=== PATIENT | male | born 1980 | race African-American/Black ===

== ENCOUNTER 2018-10-12 11:52 | Inpatient (IN) ==
[2018-10-12] MEDS ORDERED: SODIUM CHLORIDE 0.9% 1,000 ML IV STA (15:57)
[2018-10-12] MEDS ORDERED: INSULIN REGULAR 100 UNIT/ML IV STA (16:01)
[2018-10-12 17:11] LABS: Alanine Aminotransferase 17 U/L (16-61); Albumin 3.1 G/DL (3.4-5.0); Alkaline Phosphatase 153 U/L (45-117); Aspartate Amino Transferase 12 U/L (0-37); Blood Urea Nitrogen 21 MG/DL (7-18); Calcium 9.6 MG/DL (8.5-10.1); Glucose 479 MG/DL (74-106); Osmolality,Calculated 283.8 MOS/KG (273-304); Total Protein 9.4 G/DL (6.4-8.3)
[2018-10-12 17:18] LABS: Apearance,Urine CLEAR (Clear); Bilirubin,Urine Negative (Negative); Blood, Urine Negative (Negative); Glucose,Urine (UA) >=500 mg/dL (Negative); Ketones,Urine Negative (Negative); Mucus,Urine Occasional /LPF (Occasional); Nitrite,Urine Negative (Negative); Protein,Urine Negative; RBC,Urine <1 /HPF (0-4); Urine Color Straw (Yellow); Urine Specific Gravity 1.023 (1.001-1.035); Urine Urobilinogen < 2.0 EU/DL (0.2-1.0); WBC,Urine <1 /HPF (0-6)
[2018-10-12 18:16] LABS: Basophils % 0.3 % (0.0-0.8); Eosinophils # 0.1 10*3/uL (0.0-0.87); Eosinophils % 0.9 % (0.00-10.9); Hematocrit 38.2 VOL% (42.0-52.0); Hemoglobin 11.4 GM/DL (14.0-18.0); Immature Granulocytes % 0.5 %; Immature Granulocytes Absolute 0.06 #; Lymphocytes # 2.5 10*3/uL (1.4-4.0); Lymphocytes % 21.6 % (21.2-54.2); Mean Corpuscular HGB Conc 29.8 GM/DL (32-36); Mean Corpuscular Volume 81.1 FL (87-102); Monocytes % 2.3 % (1.7-12.7); Neutrophils % 74.4 % (38.7-73.9); Platelet Count 304 T/CUMM (130-400); Red Blood Count 4.71 MC/CUMM (3.8-5.5); Red Cell Distribution Width 14.8 % (9.3-17.3); White Blood Count 11.5 T/CUMM (4-12)
[2018-10-12 18:29] LABS: VBG Base Excess 0.8 MEQ/L (0-4); VBG HCO3 25.2 MEQ/L (24-28); VBG Oxygen Saturation 99.7 %; VBG PCO2 36.7 MMHG (41-51); VBG PH 7.437
[2018-10-12] MEDS ORDERED: diphenhydrAMINE CAP 25 MG CAPSULE PO PRN (19:35)
[2018-10-12] MEDS ORDERED: ACETAMINOPHEN 325 MG TABLET PO PRN (19:35)
[2018-10-12] MEDS ORDERED: DEXTROSE 50% 25 GM/50 ML VIAL IV PRN (19:35)
[2018-10-12] MEDS ORDERED: traZODone 50 MG TABLET PO PRN (19:35)
[2018-10-12] MEDS ORDERED: ONDANSETRON 4 MG/2 ML VIAL IV PRN (19:35)
[2018-10-12] MEDS ORDERED: DOCUSATE SODIUM 100 MG CAPSULE PO PRN (19:35)
[2018-10-12] MEDS ORDERED: GLUCAGON 1 MG VIAL IM PRN (19:35)
[2018-10-12] MEDS ORDERED: ALBUTEROL 2.5 MG/3 ML NEB RESP TX PRN (19:39)
[2018-10-12] MEDS ORDERED: ENOXAPARIN 40 MG/0.4 ML SYRINGE SUBCUT SCH (21:00)
[2018-10-12] MEDS ORDERED: INSULIN LISPRO 100 UNIT/ML SUBCUT SCH (21:00)
[2018-10-12] MEDS: INSULIN LISPRO 100 UNIT/ML SUBCUT SCH ×2 (21:03→23:57)
[2018-10-12] MEDS: SODIUM CHLORIDE 0.9% 1,000 ML IV SCH (21:41)
[2018-10-12] MEDS: glyBURIDE/METFORMIN 5-500 MG TABLET PO SCH (23:09)
[2018-10-13] MEDS: INSULIN LISPRO 100 UNIT/ML SUBCUT SCH ×2 (05:08→09:49)
[2018-10-13] MEDS: SODIUM CHLORIDE 0.9% 1,000 ML IV SCH (05:12)
[2018-10-13 06:41] LABS: Basophils % 0.3 % (0.0-0.8); Eosinophils # 0.1 10*3/uL (0.0-0.87); Eosinophils % 1.2 % (0.00-10.9); Hematocrit 36.5 VOL% (42.0-52.0); Hemoglobin 11.1 GM/DL (14.0-18.0); Immature Granulocytes % 0.4 %; Immature Granulocytes Absolute 0.04 #; Lymphocytes # 2.2 10*3/uL (1.4-4.0); Lymphocytes % 21.3 % (21.2-54.2); Mean Corpuscular HGB Conc 30.4 GM/DL (32-36); Mean Corpuscular Volume 81.1 FL (87-102); Mean Platelet Volume 10.9 FL (9.6-12.0); Monocytes % 7.5 % (1.7-12.7); Neutrophils % 69.3 % (38.7-73.9); Platelet Count 259 T/CUMM (130-400); Red Cell Distribution Width 15.1 % (9.3-17.3); White Blood Count 10.1 T/CUMM (4-12)
[2018-10-13 07:13] LABS: Albumin 2.7 G/DL (3.4-5.0); Bilirubin,Total 0.4 MG/DL (0.2-1.0); Calcium 8.5 MG/DL (8.5-10.1); Osmolality,Calculated 277.5 MOS/KG (273-304); Total Protein 8.4 G/DL (6.4-8.3)
[2018-10-13] MEDS ORDERED: LISINOPRIL/HCTZ 20-12.5 MG TABLET PO SCH (09:00)
[2018-10-13] MEDS ORDERED: amLODIPine 5 MG TABLET PO SCH (09:00)
[2018-10-13] MEDS ORDERED: ASPIRIN CHEW 81 MG TABLET PO SCH (09:00)
[2018-10-13] MEDS ORDERED: PANTOPRAZOLE 40 MG TABLET PO SCH (09:00)
[2018-10-13] MEDS: glyBURIDE/METFORMIN 5-500 MG TABLET PO SCH (09:50)
[2018-10-13 14:33] VITALS: BP 119/72
== END 2018-10-13 14:40 | disposition home or self-care (01) | DRG 420 ==
LOC: N.ED 11:52 → N.EDINP 19:35 → N.4E 21:41
PROVIDERS: ADMIT Family Medicine; ATTEND Family Medicine

== ENCOUNTER 2020-07-24 15:27 | Inpatient (IN) ==
[2020-07-24] MEDS ORDERED: MEROPENEM 500 MG in SODIUM CHLORIDE 0.9% 100 ML IV ONE (18:29)
[2020-07-24 19:59] LABS: Basophils % 0.2 % (0.0-0.8); Eosinophils # 0.1 10*3/uL (0.0-0.87); Eosinophils % 0.7 % (0.00-10.9); Hematocrit 37.1 VOL% (42.0-52.0); Hemoglobin 10.5 GM/DL (14.0-18.0); Immature Granulocytes % 0.4 %; Immature Granulocytes Absolute 0.07 #; Lymphocytes # 2.4 10*3/uL (1.4-4.0); Mean Corpuscular HGB Conc 28.3 GM/DL (32-36); Mean Platelet Volume 10.1 FL (9.6-12.0); Monocytes % 5.5 % (1.7-12.7); Neutrophils % 78.2 % (38.7-73.9); Platelet Count 373 T/CUMM (130-400); Red Blood Count 4.47 MC/CUMM (3.8-5.5); Red Cell Distribution Width 17.8 % (9.3-17.3)
[2020-07-24 20:05] LABS: Alanine Aminotransferase 10 U/L (16-61); Albumin 3.1 G/DL (3.4-5.0); Alkaline Phosphatase 93 U/L (45-117); Aspartate Amino Transferase 11 U/L (0-37); Bilirubin,Total < 0.39 MG/DL (0.2-1.0); Blood Urea Nitrogen 22 MG/DL (7-18); Carbon Dioxide 27 MMOL/L (21-32); Estimated Glom Filtration Rate 180 ML/MIN; Glucose 142 MG/DL (74-106); Potassium 4.5 MMOL/L (3.5-5.1); Sodium 136 MMOL/L (136-145); Total Protein 9.1 G/DL (6.4-8.2)
[2020-07-24] MEDS ORDERED: hydrALAZINE 20 MG/1 ML VIAL IV PRN (22:35)
[2020-07-24] MEDS ORDERED: ONDANSETRON 4 MG/2 ML VIAL IV PRN (22:35)
[2020-07-24] MEDS ORDERED: DEXTROSE 50% 25 GM/50 ML VIAL IV PRN (22:35)
[2020-07-24] MEDS ORDERED: GLUCAGON 1 MG VIAL IM PRN (22:35)
[2020-07-24] MEDS ORDERED: ENOXAPARIN 40 MG/0.4 ML SYRINGE SUBCUT SCH (23:00)
[2020-07-24] MEDS ORDERED: ALBUTEROL 2.5 MG/3 ML NEB RESP TX PRN (23:19)
[2020-07-24] MEDS: ACETAMINOPHEN 325 MG TABLET PO PRN (23:52)
[2020-07-25] MEDS: FERROUS SULFATE 325 MG TABLET PO SCH ×3 (02:07→20:39)
[2020-07-25] MEDS: ATORVASTATIN 10 MG TABLET PO SCH ×2 (02:07→20:39)
[2020-07-25] MEDS: APIXABAN 5 MG TABLET PO SCH ×4 (02:07→12:16)
[2020-07-25] MEDS: MEROPENEM 500 MG in SODIUM CHLORIDE 0.9% 100 ML IV SCH ×2 (02:48→09:11)
[2020-07-25 06:01] LABS: Calcium 9.2 MG/DL (8.5-10.1); Osmolality,Calculated 275.1 MOS/KG (273-304); Potassium 4.5 MMOL/L (3.5-5.1)
[2020-07-25] MEDS: INSULIN LISPRO 100 UNIT/ML SUBCUT SCH ×4 (07:53→20:39)
[2020-07-25] MEDS ORDERED: ASPIRIN CHEW 81 MG TABLET PO SCH (09:00)
[2020-07-25] MEDS ORDERED: IBUPROFEN 600 MG TABLET PO SCH (09:00)
[2020-07-25] MEDS ORDERED: NON-FORMULARY MEDICATION (Liraglutide [Victoza 3-Pak] 0.6 mg/0.1 mL (18 mg/3 mL) Pen Injec SUBCUT SCH (09:00)
[2020-07-25] MEDS: CEFEPIME 1,000 MG in SODIUM CHLORIDE 0.9% 100 ML IV SCH ×3 (09:14→20:39)
[2020-07-25] MEDS: LISINOPRIL/HCTZ 20-12.5 MG TABLET PO SCH (09:14)
[2020-07-25] MEDS: TOPIRAMATE 25 MG TABLET PO SCH (09:14)
[2020-07-25] MEDS: PANTOPRAZOLE 40 MG TABLET PO SCH (09:14)
[2020-07-25] MEDS: carvediloL 6.25 MG TABLET PO SCH ×2 (09:14→20:39)
[2020-07-25] MEDS: FUROSEMIDE 40 MG TABLET PO SCH (10:24)
[2020-07-25 11:29] LABS: Basophils # 0.1 10*3/uL (0.0-0.2); Basophils % 0.3 % (0.0-0.8); Eosinophils # 0.1 10*3/uL (0.0-0.87); Eosinophils % 0.6 % (0.00-10.9); Hematocrit 36.1 VOL% (42.0-52.0); Immature Granulocytes % 0.3 %; Immature Granulocytes Absolute 0.05 #; Lymphocytes # 2.1 10*3/uL (1.4-4.0); Lymphocytes % 14.3 % (21.2-54.2); Mean Corpuscular HGB Conc 29.9 GM/DL (32-36); Mean Corpuscular Volume 81.7 FL (87-102); Mean Platelet Volume 10.5 FL (9.6-12.0); Neutrophils % 76.5 % (38.7-73.9); Platelet Count 366 T/CUMM (130-400); Red Blood Count 4.42 MC/CUMM (3.8-5.5); Red Cell Distribution Width 18.2 % (9.3-17.3); White Blood Count 14.8 T/CUMM (4-12)
[2020-07-25 11:31] LABS: Hemoglobin 10.8 GM/DL (14.0-18.0)
[2020-07-25] MEDS ORDERED: INSULIN GLARGINE 100 UNIT/ML SUBCUT SCH (21:00)
[2020-07-26] MEDS: CEFEPIME 1,000 MG in SODIUM CHLORIDE 0.9% 100 ML IV SCH ×4 (03:16→21:05)
[2020-07-26 04:30] LABS: Calcium 8.8 MG/DL (8.5-10.1); Osmolality,Calculated 278.1 MOS/KG (273-304); Potassium 4.5 MMOL/L (3.5-5.1)
[2020-07-26] MEDS: ACETAMINOPHEN 325 MG TABLET PO PRN ×2 (05:52→21:34)
[2020-07-26 06:26] LABS: Basophils % 0.3 % (0.0-0.8); Eosinophils # 0.1 10*3/uL (0.0-0.87); Eosinophils % 1.2 % (0.00-10.9); Hematocrit 33.5 VOL% (42.0-52.0); Hemoglobin 10.1 GM/DL (14.0-18.0); Immature Granulocytes % 0.4 %; Immature Granulocytes Absolute 0.05 #; Lymphocytes # 1.9 10*3/uL (1.4-4.0); Lymphocytes % 15.7 % (21.2-54.2); Mean Corpuscular HGB Conc 30.1 GM/DL (32-36); Mean Corpuscular Volume 81.1 FL (87-102); Mean Platelet Volume 10.5 FL (9.6-12.0); Monocytes % 8.5 % (1.7-12.7); Neutrophils % 73.9 % (38.7-73.9); Platelet Count 336 T/CUMM (130-400); Red Blood Count 4.13 MC/CUMM (3.8-5.5); Red Cell Distribution Width 17.8 % (9.3-17.3); White Blood Count 11.9 T/CUMM (4-12)
[2020-07-26] MEDS: INSULIN LISPRO 100 UNIT/ML SUBCUT SCH ×4 (10:06→21:06)
[2020-07-26] MEDS: carvediloL 6.25 MG TABLET PO SCH ×2 (14:14→21:05)
[2020-07-26] MEDS: LISINOPRIL/HCTZ 20-12.5 MG TABLET PO SCH (14:14)
[2020-07-26] MEDS: PANTOPRAZOLE 40 MG TABLET PO SCH (14:14)
[2020-07-26] MEDS: TOPIRAMATE 25 MG TABLET PO SCH (14:14)
[2020-07-26] MEDS: FUROSEMIDE 40 MG TABLET PO SCH (14:14)
[2020-07-26] MEDS: FERROUS SULFATE 325 MG TABLET PO SCH ×2 (14:14→21:05)
[2020-07-26] MEDS: ATORVASTATIN 10 MG TABLET PO SCH (21:05)
[2020-07-26] MEDS: INSULIN GLARGINE 100 UNIT/ML SUBCUT SCH (21:06)
[2020-07-27] MEDS: INSULIN GLARGINE 100 UNIT/ML SUBCUT SCH ×2 (00:54→21:09)
[2020-07-27] MEDS: CEFEPIME 1,000 MG in SODIUM CHLORIDE 0.9% 100 ML IV SCH ×5 (03:18→21:11)
[2020-07-27] MEDS: ACETAMINOPHEN 325 MG TABLET PO PRN ×2 (04:05→16:12)
[2020-07-27 05:58] LABS: Basophils % 0.3 % (0.0-0.8); Eosinophils # 0.2 10*3/uL (0.0-0.87); Eosinophils % 1.7 % (0.00-10.9); Hematocrit 31.9 VOL% (42.0-52.0); Hemoglobin 9.3 GM/DL (14.0-18.0); Immature Granulocytes % 0.5 %; Immature Granulocytes Absolute 0.05 #; Lymphocytes # 1.9 10*3/uL (1.4-4.0); Lymphocytes % 17.7 % (21.2-54.2); Mean Corpuscular HGB Conc 29.2 GM/DL (32-36); Mean Corpuscular Volume 83.3 FL (87-102); Mean Platelet Volume 10.6 FL (9.6-12.0); Monocytes % 8.6 % (1.7-12.7); Neutrophils % 71.2 % (38.7-73.9); Platelet Count 298 T/CUMM (130-400); Red Blood Count 3.83 MC/CUMM (3.8-5.5); Red Cell Distribution Width 17.7 % (9.3-17.3); White Blood Count 10.7 T/CUMM (4-12)
[2020-07-27 06:02] LABS: Calcium 8.7 MG/DL (8.5-10.1); Osmolality,Calculated 283.7 MOS/KG (273-304); Potassium 4.5 MMOL/L (3.5-5.1)
[2020-07-27 06:09] LABS: Hypochromasia 1+; Microcytosis 1+
[2020-07-27 06:10] LABS: Platelet Estimate Normal
[2020-07-27] MEDS: INSULIN LISPRO 100 UNIT/ML SUBCUT SCH ×4 (07:33→20:38)
[2020-07-27] MEDS: LISINOPRIL/HCTZ 20-12.5 MG TABLET PO SCH (09:40)
[2020-07-27] MEDS: PANTOPRAZOLE 40 MG TABLET PO SCH (09:40)
[2020-07-27] MEDS: FERROUS SULFATE 325 MG TABLET PO SCH ×2 (09:40→21:08)
[2020-07-27] MEDS: TOPIRAMATE 25 MG TABLET PO SCH (09:40)
[2020-07-27] MEDS: FUROSEMIDE 40 MG TABLET PO SCH (09:41)
[2020-07-27] MEDS: carvediloL 6.25 MG TABLET PO SCH ×2 (09:41→21:08)
[2020-07-27] MEDS: ATORVASTATIN 10 MG TABLET PO SCH (21:08)
[2020-07-27] MEDS: APIXABAN 5 MG TABLET PO SCH (21:08)
[2020-07-28] MEDS: ACETAMINOPHEN 325 MG TABLET PO PRN (01:33)
[2020-07-28] MEDS: CEFEPIME 1,000 MG in SODIUM CHLORIDE 0.9% 100 ML IV SCH ×4 (03:22→21:12)
[2020-07-28 06:51] LABS: Basophils % 0.4 % (0.0-0.8); Eosinophils # 0.2 10*3/uL (0.0-0.87); Eosinophils % 2.3 % (0.00-10.9); Hematocrit 34.3 VOL% (42.0-52.0); Hemoglobin 10.1 GM/DL (14.0-18.0); Immature Granulocytes % 0.3 %; Immature Granulocytes Absolute 0.03 #; Lymphocytes # 2.1 10*3/uL (1.4-4.0); Lymphocytes % 19.6 % (21.2-54.2); Mean Corpuscular HGB Conc 29.4 GM/DL (32-36); Mean Corpuscular Volume 82.7 FL (87-102); Mean Platelet Volume 10.3 FL (9.6-12.0); Monocytes % 7.4 % (1.7-12.7); Platelet Count 331 T/CUMM (130-400); Red Blood Count 4.15 MC/CUMM (3.8-5.5); Red Cell Distribution Width 17.7 % (9.3-17.3); White Blood Count 10.5 T/CUMM (4-12)
[2020-07-28 07:04] LABS: Calcium 8.9 MG/DL (8.5-10.1); Potassium 4.7 MMOL/L (3.5-5.1)
[2020-07-28] MEDS: INSULIN LISPRO 100 UNIT/ML SUBCUT SCH ×4 (08:36→20:16)
[2020-07-28] MEDS: FERROUS SULFATE 325 MG TABLET PO SCH ×2 (09:07→21:10)
[2020-07-28] MEDS: carvediloL 6.25 MG TABLET PO SCH ×2 (09:07→21:09)
[2020-07-28] MEDS: FUROSEMIDE 40 MG TABLET PO SCH (09:07)
[2020-07-28] MEDS: PANTOPRAZOLE 40 MG TABLET PO SCH (09:07)
[2020-07-28] MEDS: LISINOPRIL/HCTZ 20-12.5 MG TABLET PO SCH (09:07)
[2020-07-28] MEDS: DOCUSATE SODIUM 100 MG CAPSULE PO PRN (09:08)
[2020-07-28] MEDS: APIXABAN 5 MG TABLET PO SCH ×2 (09:08→21:10)
[2020-07-28] MEDS: TOPIRAMATE 25 MG TABLET PO SCH (09:13)
[2020-07-28] MEDS: ATORVASTATIN 10 MG TABLET PO SCH (21:10)
[2020-07-28] MEDS: INSULIN GLARGINE 100 UNIT/ML SUBCUT SCH (21:10)
[2020-07-29] MEDS: ACETAMINOPHEN 325 MG TABLET PO PRN ×2 (01:23→23:09)
[2020-07-29] MEDS: CEFEPIME 1,000 MG in SODIUM CHLORIDE 0.9% 100 ML IV SCH ×4 (03:33→21:12)
[2020-07-29 07:01] LABS: Basophils # 0.1 10*3/uL (0.0-0.2); Basophils % 0.4 % (0.0-0.8); Eosinophils # 0.2 10*3/uL (0.0-0.87); Eosinophils % 2.1 % (0.00-10.9); Hematocrit 33.8 VOL% (42.0-52.0); Hemoglobin 9.7 GM/DL (14.0-18.0); Immature Granulocytes % 0.4 %; Immature Granulocytes Absolute 0.04 #; Lymphocytes # 2.4 10*3/uL (1.4-4.0); Mean Corpuscular HGB Conc 28.7 GM/DL (32-36); Mean Corpuscular Volume 83.9 FL (87-102); Mean Platelet Volume 10.5 FL (9.6-12.0); Monocytes % 8.9 % (1.7-12.7); Neutrophils % 67.2 % (38.7-73.9); Platelet Count 328 T/CUMM (130-400); Red Blood Count 4.03 MC/CUMM (3.8-5.5); Red Cell Distribution Width 17.8 % (9.3-17.3); White Blood Count 11.2 T/CUMM (4-12)
[2020-07-29 07:30] LABS: Anisocytosis 1+; Basophilic Stippling Slight; Platelet Estimate Normal
[2020-07-29] MEDS: INSULIN LISPRO 100 UNIT/ML SUBCUT SCH ×4 (08:32→20:51)
[2020-07-29] MEDS: TOPIRAMATE 25 MG TABLET PO SCH (08:36)
[2020-07-29] MEDS: FERROUS SULFATE 325 MG TABLET PO SCH ×2 (08:36→21:12)
[2020-07-29] MEDS: FUROSEMIDE 40 MG TABLET PO SCH (08:36)
[2020-07-29] MEDS: PANTOPRAZOLE 40 MG TABLET PO SCH (08:37)
[2020-07-29] MEDS: LISINOPRIL/HCTZ 20-12.5 MG TABLET PO SCH (08:37)
[2020-07-29] MEDS: carvediloL 6.25 MG TABLET PO SCH ×2 (08:37→21:12)
[2020-07-29] MEDS: APIXABAN 5 MG TABLET PO SCH ×2 (08:38→21:12)
[2020-07-29] MEDS: INSULIN GLARGINE 100 UNIT/ML SUBCUT SCH (21:11)
[2020-07-29] MEDS: ATORVASTATIN 10 MG TABLET PO SCH (21:12)
[2020-07-30] MEDS: CEFEPIME 1,000 MG in SODIUM CHLORIDE 0.9% 100 ML IV SCH ×3 (02:56→17:24)
[2020-07-30 07:26] LABS: Calcium 8.7 MG/DL (8.5-10.1); Osmolality,Calculated 275.1 MOS/KG (273-304); Potassium 4.7 MMOL/L (3.5-5.1)
[2020-07-30] MEDS: INSULIN LISPRO 100 UNIT/ML SUBCUT SCH ×2 (08:04→12:56)
[2020-07-30] MEDS: LISINOPRIL/HCTZ 20-12.5 MG TABLET PO SCH (08:50)
[2020-07-30] MEDS: carvediloL 6.25 MG TABLET PO SCH (08:50)
[2020-07-30] MEDS: PANTOPRAZOLE 40 MG TABLET PO SCH (08:50)
[2020-07-30] MEDS: FUROSEMIDE 40 MG TABLET PO SCH (08:50)
[2020-07-30] MEDS: TOPIRAMATE 25 MG TABLET PO SCH (08:50)
[2020-07-30] MEDS: FERROUS SULFATE 325 MG TABLET PO SCH (08:50)
[2020-07-30] MEDS: APIXABAN 5 MG TABLET PO SCH (08:51)
[2020-07-30] MEDS: DOCUSATE SODIUM 100 MG CAPSULE PO PRN (08:51)
[2020-07-30 17:23] VITALS: BP 128/82
== END 2020-07-30 19:20 | disposition home or self-care (01) | DRG 380 ==
LOC: N.ED 15:27 → N.EDINP 21:29 → SUATTDRO 21:29 → N.EDINP 07-25 00:23 → N.3E 07-25 00:24
PROVIDERS: ADMIT Internal Medicine; ATTEND Student in an Organized Health Care Education/Training Program

== ENCOUNTER 2020-09-08 11:51 | Inpatient (IN) ==
[2020-09-08] MEDS ORDERED: SODIUM CHLORIDE 0.9% 1,000 ML IV SCH (13:30)
[2020-09-08] MEDS ORDERED: GLUCAGON 1 MG VIAL IM PRN ×2 (15:48)
[2020-09-08] MEDS ORDERED: DEXTROSE 50% 25 GM/50 ML VIAL IV PRN ×2 (15:48)
[2020-09-08] MEDS ORDERED: ONDANSETRON 4 MG/2 ML VIAL IV PRN (15:48)
[2020-09-08] MEDS ORDERED: hydrALAZINE 20 MG/1 ML VIAL IV PRN ×2 (15:51→15:52)
[2020-09-08 15:55] LABS: Basophils # 0.1 10*3/uL (0.0-0.2); Basophils % 0.4 % (0.0-0.8); Eosinophils # 0.2 10*3/uL (0.0-0.87); Eosinophils % 1.1 % (0.00-10.9); Hematocrit 35.4 VOL% (42.0-52.0); Hemoglobin 10.5 GM/DL (14.0-18.0); Immature Granulocytes % 0.4 %; Immature Granulocytes Absolute 0.06 #; Lymphocytes # 2.2 10*3/uL (1.4-4.0); Lymphocytes % 14.4 % (21.2-54.2); Mean Corpuscular HGB Conc 29.7 GM/DL (32-36); Mean Corpuscular Volume 84.5 FL (87-102); Mean Platelet Volume 10.3 FL (9.6-12.0); Monocytes % 5.6 % (1.7-12.7); Neutrophils % 78.1 % (38.7-73.9); Platelet Count 316 T/CUMM (130-400); Red Blood Count 4.19 MC/CUMM (3.8-5.5); Red Cell Distribution Width 16.8 % (9.3-17.3); White Blood Count 15.1 T/CUMM (4-12)
[2020-09-08 16:59] LABS: Sedimentation Rate-Westergren 80 MM/HR (0-15)
[2020-09-08] MEDS: INSULIN LISPRO 100 UNIT/ML SUBCUT SCH ×2 (17:08→23:10)
[2020-09-08 17:58] LABS: Albumin 3.1 G/DL (3.4-5.0); Bilirubin,Total 0.4 MG/DL (0.20-1.00); Calcium 8.9 MG/DL (8.5-10.1); Osmolality,Calculated 267.2 MOS/KG (273-304); Potassium 4.5 MMOL/L (3.5-5.1); Total Protein 9.3 G/DL (6.4-8.2)
[2020-09-08] MEDS: PIPERACILLIN/TAZOBACTAM 3,375 MG in SODIUM CHLORIDE 0.9% 100 ML IV SCH (18:13)
[2020-09-08] MEDS ORDERED: SODIUM CHLORIDE 0.9% IV ONE (19:00)
[2020-09-08] MEDS ORDERED: VANCOMYCIN IV ONE (19:00)
[2020-09-08] MEDS ORDERED: ACETAMINOPHEN 500 MG TABLET ONE (21:08)
[2020-09-08] MEDS: APIXABAN 5 MG TABLET PO SCH (21:10)
[2020-09-08] MEDS: ATORVASTATIN 10 MG TABLET PO SCH (21:10)
[2020-09-08] MEDS: carvediloL 12.5 MG TABLET PO SCH (21:10)
[2020-09-09] MEDS: PIPERACILLIN/TAZOBACTAM 3,375 MG in SODIUM CHLORIDE 0.9% 100 ML IV SCH ×3 (02:35→21:45)
[2020-09-09] MEDS: ACETAMINOPHEN 500 MG TABLET PO PRN (04:45)
[2020-09-09 05:50] LABS: Basophils % 0.3 % (0.0-0.8); Eosinophils # 0.2 10*3/uL (0.0-0.87); Eosinophils % 1.5 % (0.00-10.9); Hematocrit 32.4 VOL% (42.0-52.0); Hemoglobin 9.3 GM/DL (14.0-18.0); Immature Granulocytes % 0.4 %; Immature Granulocytes Absolute 0.05 #; Lymphocytes # 1.9 10*3/uL (1.4-4.0); Mean Corpuscular HGB Conc 28.7 GM/DL (32-36); Mean Corpuscular Volume 84.8 FL (87-102); Mean Platelet Volume 11.1 FL (9.6-12.0); Monocytes % 6.4 % (1.7-12.7); Neutrophils % 75.4 % (38.7-73.9); Platelet Count 239 T/CUMM (130-400); Red Blood Count 3.82 MC/CUMM (3.8-5.5); Red Cell Distribution Width 16.8 % (9.3-17.3); White Blood Count 11.8 T/CUMM (4-12)
[2020-09-09] MEDS ORDERED: ACETAMINOPHEN 500 MG TABLET PO SCH (06:00)
[2020-09-09 06:54] LABS: Albumin 2.5 G/DL (3.4-5.0); Bilirubin,Total 0.4 MG/DL (0.20-1.00); Calcium 8.6 MG/DL (8.5-10.1); Osmolality,Calculated 269.2 MOS/KG (273-304); Potassium 4.4 MMOL/L (3.5-5.1); Risk Ratio 3.1; Thyroid Stimulating Hormone 1.27 uIU/ml (0.358-3.74); Total Protein 7.9 G/DL (6.4-8.2); VLDL Cholesterol 28.2 MG/DL
[2020-09-09 06:57] LABS: Hypochromasia 3+; Microcytosis 1+; Platelet Estimate Normal
[2020-09-09] MEDS ORDERED: MAGNESIUM SULF RIDER 2 GM/50 ML PREMIX IV ONE (08:01)
[2020-09-09] MEDS: INSULIN LISPRO 100 UNIT/ML SUBCUT SCH ×4 (08:26→21:47)
[2020-09-09] MEDS: APIXABAN 5 MG TABLET PO SCH ×2 (09:13→21:47)
[2020-09-09] MEDS: FERROUS SULFATE 325 MG TABLET PO SCH ×2 (09:13→18:08)
[2020-09-09] MEDS: LISINOPRIL/HCTZ 20-12.5 MG TABLET PO SCH (09:16)
[2020-09-09] MEDS: carvediloL 12.5 MG TABLET PO SCH ×2 (09:16→21:46)
[2020-09-09] MEDS: TOPIRAMATE 25 MG TABLET PO SCH (09:16)
[2020-09-09] MEDS: PANTOPRAZOLE 40 MG TABLET PO SCH (09:17)
[2020-09-09] MEDS ORDERED: ALBUTEROL 2.5 MG/3 ML NEB RESP TX PRN (11:00)
[2020-09-09] MEDS: VANCOMYCIN INJ 2,000 MG in SODIUM CHLORIDE 0.9% 500 ML IV SCH (15:46)
[2020-09-09] MEDS: INSULIN GLARGINE 100 UNIT/ML SUBCUT SCH (18:41)
[2020-09-09] MEDS: ATORVASTATIN 10 MG TABLET PO SCH (21:47)
[2020-09-10] MEDS: ACETAMINOPHEN 500 MG TABLET PO PRN ×2 (02:32→18:16)
[2020-09-10] MEDS: VANCOMYCIN INJ 2,000 MG in SODIUM CHLORIDE 0.9% 500 ML IV SCH (03:06)
[2020-09-10] MEDS: PIPERACILLIN/TAZOBACTAM 3,375 MG in SODIUM CHLORIDE 0.9% 100 ML IV SCH (04:44)
[2020-09-10 06:29] LABS: Calcium 8.7 MG/DL (8.5-10.1); Potassium 4.2 MMOL/L (3.5-5.1)
[2020-09-10 06:33] LABS: Basophils % 0.4 % (0.0-0.8); Eosinophils # 0.3 10*3/uL (0.0-0.87); Eosinophils % 2.4 % (0.00-10.9); Hematocrit 29.8 VOL% (42.0-52.0); Immature Granulocytes % 0.4 %; Immature Granulocytes Absolute 0.04 #; Lymphocytes # 1.9 10*3/uL (1.4-4.0); Lymphocytes % 18.4 % (21.2-54.2); Mean Corpuscular HGB Conc 30.2 GM/DL (32-36); Mean Corpuscular Volume 82.8 FL (87-102); Mean Platelet Volume 10.7 FL (9.6-12.0); Neutrophils % 70.4 % (38.7-73.9); Platelet Count 267 T/CUMM (130-400); Red Cell Distribution Width 16.6 % (9.3-17.3); White Blood Count 10.4 T/CUMM (4-12)
[2020-09-10] MEDS: INSULIN LISPRO 100 UNIT/ML SUBCUT SCH ×4 (10:29→21:05)
[2020-09-10] MEDS: LISINOPRIL/HCTZ 20-12.5 MG TABLET PO SCH (10:30)
[2020-09-10] MEDS: FERROUS SULFATE 325 MG TABLET PO SCH ×2 (10:31→17:39)
[2020-09-10] MEDS: APIXABAN 5 MG TABLET PO SCH ×2 (10:31→21:05)
[2020-09-10] MEDS: carvediloL 12.5 MG TABLET PO SCH ×2 (10:31→21:05)
[2020-09-10] MEDS: TOPIRAMATE 25 MG TABLET PO SCH (10:32)
[2020-09-10] MEDS: PANTOPRAZOLE 40 MG TABLET PO SCH (10:32)
[2020-09-10] MEDS: SKIN HEALING OINT (AQUAPHOR) 50 GM TUBE TOP SCH (16:36)
[2020-09-10] MEDS: TRIAMCINOLONE 0.025% CREAM 15 GM TUBE TOP SCH (16:36)
[2020-09-10] MEDS: INSULIN GLARGINE 100 UNIT/ML SUBCUT SCH (17:40)
[2020-09-10] MEDS: ATORVASTATIN 10 MG TABLET PO SCH (21:05)
[2020-09-11] MEDS: ACETAMINOPHEN 500 MG TABLET PO PRN (03:42)
[2020-09-11 06:17] LABS: Basophils % 0.3 % (0.0-0.8); Eosinophils # 0.3 10*3/uL (0.0-0.87); Eosinophils % 2.4 % (0.00-10.9); Hematocrit 31.7 VOL% (42.0-52.0); Hemoglobin 9.2 GM/DL (14.0-18.0); Immature Granulocytes % 0.7 %; Immature Granulocytes Absolute 0.08 #; Lymphocytes # 2.1 10*3/uL (1.4-4.0); Lymphocytes % 17.8 % (21.2-54.2); Mean Corpuscular Volume 85.4 FL (87-102); Mean Platelet Volume 10.8 FL (9.6-12.0); Monocytes % 6.7 % (1.7-12.7); Neutrophils % 72.1 % (38.7-73.9); Platelet Count 280 T/CUMM (130-400); Red Blood Count 3.71 MC/CUMM (3.8-5.5); Red Cell Distribution Width 16.8 % (9.3-17.3); White Blood Count 11.9 T/CUMM (4-12)
[2020-09-11] MEDS: FERROUS SULFATE 325 MG TABLET PO SCH (08:45)
[2020-09-11] MEDS: APIXABAN 5 MG TABLET PO SCH (08:45)
[2020-09-11] MEDS: LISINOPRIL/HCTZ 20-12.5 MG TABLET PO SCH (08:45)
[2020-09-11] MEDS: TOPIRAMATE 25 MG TABLET PO SCH (08:45)
[2020-09-11] MEDS: PANTOPRAZOLE 40 MG TABLET PO SCH (08:46)
[2020-09-11] MEDS: carvediloL 12.5 MG TABLET PO SCH (08:46)
[2020-09-11] MEDS: SKIN HEALING OINT (AQUAPHOR) 50 GM TUBE TOP SCH (08:54)
[2020-09-11] MEDS: TRIAMCINOLONE 0.025% CREAM 15 GM TUBE TOP SCH (08:54)
[2020-09-11] MEDS: INSULIN LISPRO 100 UNIT/ML SUBCUT SCH ×2 (08:54→12:08)
[2020-09-11 11:42] VITALS: BP 134/74
== END 2020-09-11 14:58 | disposition home or self-care (01) | DRG 197 ==
LOC: SUATTDRO → N.ED 11:51 → N.EDINP 15:48 → SUATTDRO 15:48 → N.5E 09-09 00:51
PROVIDERS: ADMIT Internal Medicine; ATTEND Internal Medicine

== ENCOUNTER 2021-01-07 13:15 | Inpatient (IN) ==
[2021-01-07 17:58] LABS: Basophils % 0.3 % (0.0-0.8); Eosinophils # 0.2 10*3/uL (0.0-0.87); Eosinophils % 1.6 % (0.00-10.9); Hematocrit 43.5 VOL% (42.0-52.0); Hemoglobin 12.9 GM/DL (14.0-18.0); Immature Granulocytes % 0.3 %; Immature Granulocytes Absolute 0.04 #; Lymphocytes # 1.8 10*3/uL (1.4-4.0); Lymphocytes % 15.1 % (21.2-54.2); Mean Corpuscular HGB Conc 29.7 GM/DL (32-36); Mean Corpuscular Volume 82.7 FL (87-102); Mean Platelet Volume 10.2 FL (9.6-12.0); Monocytes % 6.3 % (1.7-12.7); Neutrophils % 76.4 % (38.7-73.9); Platelet Count 320 T/CUMM (130-400); Red Blood Count 5.26 MC/CUMM (3.8-5.5); Red Cell Distribution Width 16.9 % (9.3-17.3); White Blood Count 12.1 T/CUMM (4-12)
[2021-01-07 18:01] LABS: INR 1.2
[2021-01-07 18:17] LABS: Albumin 2.6 G/DL (3.4-5.0); Bilirubin,Total 0.5 MG/DL (0.20-1.00); Calcium 9.5 MG/DL (8.5-10.1); Osmolality,Calculated 276.2 MOS/KG (273-304); Potassium 5.7 MMOL/L (3.5-5.1); Total Protein 9.7 G/DL (6.4-8.2)
[2021-01-07] MEDS ORDERED: VANCOMYCIN INJ 1,000 MG in SODIUM CHLORIDE 0.9% 250 ML IV STA (18:38)
[2021-01-07] MEDS ORDERED: GLUCAGON 1 MG VIAL IM PRN ×2 (19:17)
[2021-01-07] MEDS ORDERED: DEXTROSE 50% 25 GM/50 ML VIAL IV PRN ×2 (19:17)
[2021-01-07] MEDS ORDERED: SODIUM POLYSTYRENE SULFATE 15 GM/60 ML BOTTLE PO STA (19:21)
[2021-01-07] MEDS ORDERED: VANCOMYCIN INJ 1,000 MG in SODIUM CHLORIDE 0.9% 250 ML IV ONE (21:00)
[2021-01-08] MEDS: SODIUM CHLORIDE 0.9% 1,000 ML IV SCH ×3 (02:45→16:35)
[2021-01-08] MEDS: INSULIN LISPRO 100 UNIT/ML SUBCUT SCH ×5 (03:21→22:16)
[2021-01-08] MEDS: APIXABAN 5 MG TABLET PO SCH ×3 (03:21→22:17)
[2021-01-08] MEDS: carvediloL 6.25 MG TABLET PO SCH ×3 (03:21→17:37)
[2021-01-08] MEDS: ATORVASTATIN 10 MG TABLET PO SCH ×2 (03:22→22:17)
[2021-01-08 08:42] LABS: Calcium 9.1 MG/DL (8.5-10.1); Osmolality,Calculated 275.2 MOS/KG (273-304); Potassium 5.2 MMOL/L (3.5-5.1)
[2021-01-08] MEDS ORDERED: VANCOMYCIN INJ 2,000 MG in SODIUM CHLORIDE 0.9% 500 ML IV SCH (09:00)
[2021-01-08] MEDS: FERROUS SULFATE 325 MG TABLET PO SCH ×2 (09:26→17:37)
[2021-01-08] MEDS: PANTOPRAZOLE 40 MG TABLET PO SCH (09:26)
[2021-01-08 10:30] LABS: Basophils % 0.4 % (0.0-0.8); Eosinophils # 0.2 10*3/uL (0.0-0.87); Eosinophils % 1.3 % (0.00-10.9); Hematocrit 35.7 VOL% (42.0-52.0); Immature Granulocytes % 0.4 %; Immature Granulocytes Absolute 0.04 #; Lymphocytes # 1.6 10*3/uL (1.4-4.0); Lymphocytes % 14.3 % (21.2-54.2); Mean Corpuscular HGB Conc 29.4 GM/DL (32-36); Mean Corpuscular Volume 82.6 FL (87-102); Mean Platelet Volume 10.5 FL (9.6-12.0); Monocytes % 7.7 % (1.7-12.7); Neutrophils % 75.9 % (38.7-73.9); Platelet Count 282 T/CUMM (130-400); Red Blood Count 4.32 MC/CUMM (3.8-5.5); Red Cell Distribution Width 16.8 % (9.3-17.3); White Blood Count 11.4 T/CUMM (4-12)
[2021-01-08 10:32] LABS: Hemoglobin 10.5 GM/DL (14.0-18.0)
[2021-01-08] MEDS: TOPIRAMATE 25 MG TABLET PO SCH (15:23)
[2021-01-08] MEDS: CEFEPIME 1,000 MG in SODIUM CHLORIDE 0.9% 100 ML IV SCH ×2 (15:23→22:21)
[2021-01-08] MEDS: LINEZOLID INJ 600 MG/300 ML PREMIX IV SCH (16:35)
[2021-01-08] MEDS: INSULIN GLARGINE 100 UNIT/ML SUBCUT SCH (17:37)
[2021-01-08] MEDS: tiZANidine 4 MG TABLET PO PRN (22:18)
[2021-01-09] MEDS: SODIUM CHLORIDE 0.9% 1,000 ML IV SCH ×3 (01:22→17:08)
[2021-01-09] MEDS: CEFEPIME 1,000 MG in SODIUM CHLORIDE 0.9% 100 ML IV SCH ×4 (02:32→22:42)
[2021-01-09] MEDS: LINEZOLID INJ 600 MG/300 ML PREMIX IV SCH ×2 (05:39→17:07)
[2021-01-09 07:26] LABS: Basophils % 0.4 % (0.0-0.8); Eosinophils # 0.2 10*3/uL (0.0-0.87); Eosinophils % 2.3 % (0.00-10.9); Hematocrit 29.8 VOL% (42.0-52.0); Hemoglobin 8.8 GM/DL (14.0-18.0); Immature Granulocytes % 0.4 %; Immature Granulocytes Absolute 0.04 #; Lymphocytes # 1.8 10*3/uL (1.4-4.0); Lymphocytes % 17.8 % (21.2-54.2); Mean Corpuscular HGB Conc 29.5 GM/DL (32-36); Mean Corpuscular Volume 82.3 FL (87-102); Mean Platelet Volume 9.6 FL (9.6-12.0); Monocytes % 9.2 % (1.7-12.7); Neutrophils % 69.9 % (38.7-73.9); Platelet Count 316 T/CUMM (130-400); Red Blood Count 3.62 MC/CUMM (3.8-5.5); Red Cell Distribution Width 16.6 % (9.3-17.3); White Blood Count 9.9 T/CUMM (4-12)
[2021-01-09 07:32] LABS: Platelet Estimate Normal
[2021-01-09 07:33] LABS: Anisocytosis 1+; Macrocytosis Slight
[2021-01-09 07:38] LABS: Calcium 8.5 MG/DL (8.5-10.1); Osmolality,Calculated 281.5 MOS/KG (273-304); Potassium 4.2 MMOL/L (3.5-5.1)
[2021-01-09] MEDS: INSULIN LISPRO 100 UNIT/ML SUBCUT SCH ×4 (07:43→22:42)
[2021-01-09] MEDS: APIXABAN 5 MG TABLET PO SCH (08:54)
[2021-01-09] MEDS: TOPIRAMATE 25 MG TABLET PO SCH (08:54)
[2021-01-09] MEDS: PANTOPRAZOLE 40 MG TABLET PO SCH (08:54)
[2021-01-09] MEDS: carvediloL 6.25 MG TABLET PO SCH ×2 (08:54→17:07)
[2021-01-09] MEDS: FERROUS SULFATE 325 MG TABLET PO SCH ×2 (08:54→17:07)
[2021-01-09] MEDS: INSULIN GLARGINE 100 UNIT/ML SUBCUT SCH (17:07)
[2021-01-09] MEDS: ATORVASTATIN 10 MG TABLET PO SCH (22:41)
[2021-01-09] MEDS: tiZANidine 4 MG TABLET PO PRN (22:41)
[2021-01-10] MEDS: CEFEPIME 1,000 MG in SODIUM CHLORIDE 0.9% 100 ML IV SCH ×4 (04:30→21:52)
[2021-01-10] MEDS: LINEZOLID INJ 600 MG/300 ML PREMIX IV SCH ×2 (05:59→17:03)
[2021-01-10 07:45] LABS: Basophils # 0.1 10*3/uL (0.0-0.2); Basophils % 0.7 % (0.0-0.8); Eosinophils # 0.4 10*3/uL (0.0-0.87); Eosinophils % 4.3 % (0.00-10.9); Hematocrit 30.9 VOL% (42.0-52.0); Hemoglobin 9.2 GM/DL (14.0-18.0); Immature Granulocytes % 0.2 %; Immature Granulocytes Absolute 0.02 #; Lymphocytes # 1.8 10*3/uL (1.4-4.0); Lymphocytes % 20.1 % (21.2-54.2); Mean Corpuscular HGB Conc 29.8 GM/DL (32-36); Mean Corpuscular Volume 83.1 FL (87-102); Mean Platelet Volume 9.5 FL (9.6-12.0); Monocytes % 9.2 % (1.7-12.7); Neutrophils % 65.5 % (38.7-73.9); Platelet Count 313 T/CUMM (130-400); Red Blood Count 3.72 MC/CUMM (3.8-5.5); Red Cell Distribution Width 16.8 % (9.3-17.3); White Blood Count 9.1 T/CUMM (4-12)
[2021-01-10 08:13] LABS: Calcium 8.7 MG/DL (8.5-10.1); Osmolality,Calculated 276.7 MOS/KG (273-304); Potassium 4.2 MMOL/L (3.5-5.1)
[2021-01-10] MEDS: SODIUM CHLORIDE 0.9% 1,000 ML IV SCH ×3 (08:39→21:52)
[2021-01-10] MEDS: INSULIN LISPRO 100 UNIT/ML SUBCUT SCH ×4 (08:39→22:05)
[2021-01-10] MEDS: carvediloL 6.25 MG TABLET PO SCH ×2 (08:40→17:02)
[2021-01-10] MEDS: FERROUS SULFATE 325 MG TABLET PO SCH ×2 (08:40→17:03)
[2021-01-10] MEDS: TOPIRAMATE 25 MG TABLET PO SCH (08:40)
[2021-01-10] MEDS: PANTOPRAZOLE 40 MG TABLET PO SCH (08:40)
[2021-01-10] MEDS ORDERED: BUPIVACAINE MPF 0.25% 30 ML VIAL ONE (09:51)
[2021-01-10] MEDS ORDERED: MIDAZOLAM 2 MG/2 ML VIAL ONE ×3 (10:17→11:03)
[2021-01-10] MEDS ORDERED: fentaNYL 100 MCG/2 ML VIAL ONE (10:17)
[2021-01-10] MEDS ORDERED: propofoL 200 MG/20 ML VIAL IV ONE (10:47)
[2021-01-10] MEDS: INSULIN GLARGINE 100 UNIT/ML SUBCUT SCH (17:03)
[2021-01-10] MEDS: ATORVASTATIN 10 MG TABLET PO SCH (21:51)
[2021-01-11] MEDS: CEFEPIME 1,000 MG in SODIUM CHLORIDE 0.9% 100 ML IV SCH ×4 (03:27→21:14)
[2021-01-11] MEDS: LINEZOLID INJ 600 MG/300 ML PREMIX IV SCH ×2 (04:33→17:41)
[2021-01-11] MEDS: SODIUM CHLORIDE 0.9% 1,000 ML IV SCH ×2 (04:50→12:49)
[2021-01-11 05:48] LABS: Basophils % 0.2 % (0.0-0.8); Eosinophils # 0.5 10*3/uL (0.0-0.87); Eosinophils % 4.1 % (0.00-10.9); Immature Granulocytes % 0.4 %; Immature Granulocytes Absolute 0.05 #; Lymphocytes # 1.3 10*3/uL (1.4-4.0); Lymphocytes % 11.1 % (21.2-54.2); Mean Corpuscular HGB Conc 29.4 GM/DL (32-36); Mean Corpuscular Volume 83.3 FL (87-102); Mean Platelet Volume 9.3 FL (9.6-12.0); Monocytes % 8.8 % (1.7-12.7); Neutrophils % 75.4 % (38.7-73.9); Platelet Count 319 T/CUMM (130-400); Red Blood Count 4.08 MC/CUMM (3.8-5.5); Red Cell Distribution Width 16.8 % (9.3-17.3); White Blood Count 11.5 T/CUMM (4-12)
[2021-01-11 06:17] LABS: Calcium 8.5 MG/DL (8.5-10.1); Osmolality,Calculated 278.4 MOS/KG (273-304); Potassium 4.3 MMOL/L (3.5-5.1)
[2021-01-11] MEDS: INSULIN LISPRO 100 UNIT/ML SUBCUT SCH ×4 (07:57→21:08)
[2021-01-11] MEDS: TOPIRAMATE 25 MG TABLET PO SCH (08:09)
[2021-01-11] MEDS: carvediloL 6.25 MG TABLET PO SCH ×2 (08:09→17:45)
[2021-01-11] MEDS: FERROUS SULFATE 325 MG TABLET PO SCH ×2 (08:09→17:41)
[2021-01-11] MEDS: PANTOPRAZOLE 40 MG TABLET PO SCH (08:09)
[2021-01-11] MEDS ORDERED: HYDROmorphone 2 MG/1 ML VIAL IV SCH (09:00)
[2021-01-11] MEDS ORDERED: HYDROmorphone 2 MG/1 ML VIAL IV PRN (09:07)
[2021-01-11] MEDS: SODIUM HYPOCHLORITE 0.25% IRRIG 473 ML BOTTLE TOP SCH (12:48)
[2021-01-11] MEDS: SKIN HEALING OINT (AQUAPHOR) 50 GM TUBE TOP SCH (17:41)
[2021-01-11] MEDS: INSULIN GLARGINE 100 UNIT/ML SUBCUT SCH (17:41)
[2021-01-11] MEDS: ATORVASTATIN 10 MG TABLET PO SCH (21:08)
[2021-01-11] MEDS: APIXABAN 5 MG TABLET PO SCH (21:08)
[2021-01-11] MEDS: tiZANidine 4 MG TABLET PO PRN (21:08)
[2021-01-12] MEDS: HYDROmorphone 2 MG/1 ML VIAL IM PRN (04:49)
[2021-01-12] MEDS: CEFEPIME 1,000 MG in SODIUM CHLORIDE 0.9% 100 ML IV SCH ×5 (04:49→21:30)
[2021-01-12] MEDS: INSULIN LISPRO 100 UNIT/ML SUBCUT SCH ×4 (07:40→21:32)
[2021-01-12] MEDS: APIXABAN 5 MG TABLET PO SCH ×2 (08:08→21:30)
[2021-01-12] MEDS: PANTOPRAZOLE 40 MG TABLET PO SCH (08:08)
[2021-01-12] MEDS: FERROUS SULFATE 325 MG TABLET PO SCH ×2 (08:09→16:36)
[2021-01-12] MEDS: TOPIRAMATE 25 MG TABLET PO SCH (08:09)
[2021-01-12] MEDS: carvediloL 6.25 MG TABLET PO SCH ×2 (08:09→16:36)
[2021-01-12] MEDS: SKIN HEALING OINT (AQUAPHOR) 50 GM TUBE TOP SCH (08:10)
[2021-01-12] MEDS: LINEZOLID INJ 600 MG/300 ML PREMIX IV SCH ×3 (08:10→15:14)
[2021-01-12] MEDS: SODIUM HYPOCHLORITE 0.25% IRRIG 473 ML BOTTLE TOP SCH (10:06)
[2021-01-12 10:35] LABS: Basophils % 0.4 % (0.0-0.8); Eosinophils # 0.5 10*3/uL (0.0-0.87); Eosinophils % 4.2 % (0.00-10.9); Hematocrit 32.8 VOL% (42.0-52.0); Hemoglobin 9.6 GM/DL (14.0-18.0); Immature Granulocytes % 0.5 %; Immature Granulocytes Absolute 0.06 #; Lymphocytes # 1.9 10*3/uL (1.4-4.0); Lymphocytes % 16.9 % (21.2-54.2); Mean Corpuscular HGB Conc 29.3 GM/DL (32-36); Mean Corpuscular Volume 83.5 FL (87-102); Mean Platelet Volume 9.7 FL (9.6-12.0); Monocytes % 10.7 % (1.7-12.7); Neutrophils % 67.3 % (38.7-73.9); Platelet Count 336 T/CUMM (130-400); Red Blood Count 3.93 MC/CUMM (3.8-5.5); Red Cell Distribution Width 17.1 % (9.3-17.3); White Blood Count 11.1 T/CUMM (4-12)
[2021-01-12] MEDS: INSULIN GLARGINE 100 UNIT/ML SUBCUT SCH (16:53)
[2021-01-12] MEDS: ATORVASTATIN 10 MG TABLET PO SCH (21:30)
[2021-01-13] MEDS: CEFEPIME 1,000 MG in SODIUM CHLORIDE 0.9% 100 ML IV SCH ×4 (03:57→21:35)
[2021-01-13 05:05] LABS: Basophils % 0.3 % (0.0-0.8); Eosinophils # 0.5 10*3/uL (0.0-0.87); Eosinophils % 4.9 % (0.00-10.9); Hematocrit 33.2 VOL% (42.0-52.0); Immature Granulocytes % 0.3 %; Immature Granulocytes Absolute 0.03 #; Lymphocytes # 1.8 10*3/uL (1.4-4.0); Lymphocytes % 18.2 % (21.2-54.2); Mean Corpuscular HGB Conc 28.9 GM/DL (32-36); Mean Corpuscular Volume 84.1 FL (87-102); Mean Platelet Volume 9.4 FL (9.6-12.0); Monocytes % 9.7 % (1.7-12.7); Neutrophils % 66.6 % (38.7-73.9); Platelet Count 341 T/CUMM (130-400); Red Blood Count 3.95 MC/CUMM (3.8-5.5); Red Cell Distribution Width 17.3 % (9.3-17.3); White Blood Count 9.8 T/CUMM (4-12)
[2021-01-13 05:08] LABS: Hemoglobin 9.6 GM/DL (14.0-18.0)
[2021-01-13] MEDS: LINEZOLID INJ 600 MG/300 ML PREMIX IV SCH ×2 (05:12→15:51)
[2021-01-13 05:46] LABS: Anisocytosis 1+; Hypochromasia Slight; Platelet Estimate Normal
[2021-01-13] MEDS: INSULIN LISPRO 100 UNIT/ML SUBCUT SCH ×3 (07:32→15:46)
[2021-01-13] MEDS: carvediloL 6.25 MG TABLET PO SCH ×2 (08:45→17:22)
[2021-01-13] MEDS: TOPIRAMATE 25 MG TABLET PO SCH (08:45)
[2021-01-13] MEDS: SKIN HEALING OINT (AQUAPHOR) 50 GM TUBE TOP SCH (08:45)
[2021-01-13] MEDS: APIXABAN 5 MG TABLET PO SCH ×2 (08:45→21:35)
[2021-01-13] MEDS: FERROUS SULFATE 325 MG TABLET PO SCH ×2 (08:45→17:22)
[2021-01-13] MEDS: PANTOPRAZOLE 40 MG TABLET PO SCH (08:45)
[2021-01-13] MEDS: SODIUM HYPOCHLORITE 0.25% IRRIG 473 ML BOTTLE TOP SCH (08:46)
[2021-01-13] MEDS: HYDROmorphone 2 MG/1 ML VIAL IM PRN (09:21)
[2021-01-13] MEDS: INSULIN GLARGINE 100 UNIT/ML SUBCUT SCH (17:22)
[2021-01-13] MEDS: ATORVASTATIN 10 MG TABLET PO SCH (21:35)
[2021-01-14] MEDS: CEFEPIME 1,000 MG in SODIUM CHLORIDE 0.9% 100 ML IV SCH ×2 (03:36→08:30)
[2021-01-14] MEDS: INSULIN LISPRO 100 UNIT/ML SUBCUT SCH ×3 (03:38→11:58)
[2021-01-14] MEDS: LINEZOLID INJ 600 MG/300 ML PREMIX IV SCH (04:47)
[2021-01-14] MEDS: PANTOPRAZOLE 40 MG TABLET PO SCH (08:27)
[2021-01-14] MEDS: APIXABAN 5 MG TABLET PO SCH (08:28)
[2021-01-14] MEDS: FERROUS SULFATE 325 MG TABLET PO SCH (08:28)
[2021-01-14] MEDS: carvediloL 6.25 MG TABLET PO SCH (08:28)
[2021-01-14] MEDS: TOPIRAMATE 25 MG TABLET PO SCH (08:28)
[2021-01-14] MEDS: SKIN HEALING OINT (AQUAPHOR) 50 GM TUBE TOP SCH (08:30)
[2021-01-14] MEDS: SODIUM HYPOCHLORITE 0.25% IRRIG 473 ML BOTTLE TOP SCH (08:30)
[2021-01-14 16:38] VITALS: BP 135/69
== END 2021-01-14 19:36 | disposition home or self-care (01) | DRG 420 ==
LOC: N.ED 13:15 → N.CVR 19:17 → N.3E 22:53
PROVIDERS: ADMIT Internal Medicine; ATTEND Internal Medicine

== ENCOUNTER 2021-02-12 13:16 | Inpatient (IN) ==
[2021-02-12] MEDS ORDERED: SODIUM CHLORIDE 0.9% 500 ML IV STA (21:07)
[2021-02-12] MEDS ORDERED: ONDANSETRON 4 MG/2 ML VIAL IV STA (21:07)
[2021-02-12] MEDS ORDERED: PANTOPRAZOLE 40 MG VIAL IV STA (21:07)
[2021-02-13] MEDS ORDERED: PANTOPRAZOLE 40 MG TABLET PO STA (00:04)
[2021-02-13] MEDS ORDERED: ONDANSETRON ODT 4 MG TABLET PO STA (00:04)
[2021-02-13 00:21] LABS: Bacteria,Urine Occasional /HPF (Few); Bilirubin,Urine Negative (Negative); Blood, Urine Negative (Negative); Glucose,Urine (UA) Negative (Negative); Hyaline Casts,Urine 3 /LPF (0-3); Ketones,Urine Negative (Negative); Nitrite,Urine Negative (Negative); Protein,Urine Negative; RBC,Urine 1 /HPF (0-4); Squamous Epithelial Cell,Urine Occasional /HPF (0-10); Urine Appearance CLEAR (Clear); Urine Color Yellow (Yellow); Urine Specific Gravity 1.017 (1.001-1.035); Urine Urobilinogen < 2.0 EU/DL (<2.0)
[2021-02-13 02:11] LABS: Basophils % 0.3 % (0.0-0.8); Monocytes % 9.3 % (1.7-12.7)
[2021-02-13 02:32] LABS: Albumin 2.4 G/DL (3.4-5.0); Bilirubin,Total 0.5 MG/DL (0.20-1.00); Calcium 8.1 MG/DL (8.5-10.1); Eosinophils # 0.2 10*3/uL (0.0-0.87); Eosinophils % 1.6 % (0.00-10.9); Hematocrit 34.4 VOL% (42.0-52.0); Immature Granulocytes % 0.5 %; Immature Granulocytes Absolute 0.07 #; Lymphocytes # 1.9 10*3/uL (1.4-4.0); Lymphocytes % 12.7 % (21.2-54.2); Mean Corpuscular HGB Conc 29.4 GM/DL (32-36); Mean Corpuscular Volume 83.5 FL (87-102); Mean Platelet Volume 10.4 FL (9.6-12.0); Neutrophils % 75.6 % (38.7-73.9); Osmolality,Calculated 282.4 MOS/KG (273-304); Platelet Count 346 T/CUMM (130-400); Potassium 4.2 MMOL/L (3.5-5.1); Red Blood Count 4.12 MC/CUMM (3.8-5.5); Red Cell Distribution Width 18.5 % (9.3-17.3); Total Protein 8.5 G/DL (6.4-8.2); White Blood Count 15.1 T/CUMM (4-12)
[2021-02-13 02:36] LABS: Hemoglobin 10.1 GM/DL (14.0-18.0)
[2021-02-13] MEDS ORDERED: VANCOMYCIN 50 MG/ML 60 ML/BOTTLE PO STA (02:39)
[2021-02-13] MEDS ORDERED: MAGNESIUM CHLORIDE 64 MG TABLET PO STA (03:00)
[2021-02-13] MEDS ORDERED: ACETAMINOPHEN 325 MG TABLET PO PRN (03:00)
[2021-02-13] MEDS ORDERED: ONDANSETRON ODT 4 MG TABLET PO PRN (03:00)
[2021-02-13] MEDS ORDERED: DEXTROSE 50% 25 GM/50 ML SYRINGE IV PRN (03:00)
[2021-02-13] MEDS ORDERED: PROMETHAZINE 25 MG/1 ML VIAL IM PRN (03:00)
[2021-02-13] MEDS ORDERED: GLUCAGON 1 MG VIAL IM PRN (03:00)
[2021-02-13] MEDS ORDERED: VANCOMYCIN 50 MG/ML 60 ML/BOTTLE PO SCH (06:00)
[2021-02-13] MEDS: INSULIN LISPRO 100 UNIT/ML SUBCUT SCH ×4 (11:10→20:22)
[2021-02-13] MEDS: APIXABAN 5 MG TABLET PO SCH ×2 (11:20→21:37)
[2021-02-13] MEDS: PANTOPRAZOLE 40 MG TABLET PO SCH (11:20)
[2021-02-13] MEDS: VANCOMYCIN 50 MG/ML 60 ML/BOTTLE PO SCH ×3 (11:20→21:37)
[2021-02-13] MEDS: SODIUM CHLORIDE 0.9% 1,000 ML IV SCH (17:06)
[2021-02-13] MEDS: SODIUM HYPOCHLORITE 0.25% IRRIG 473 ML BOTTLE TOP SCH (17:39)
[2021-02-13] MEDS: DESITIN 4OZ/NYSTATIN 15 GRAM MIXTURE PASTE TOP SCH (21:37)
[2021-02-14] MEDS: VANCOMYCIN 50 MG/ML 60 ML/BOTTLE PO SCH ×4 (04:14→21:07)
[2021-02-14 07:49] LABS: Calcium 8.3 MG/DL (8.5-10.1); Osmolality,Calculated 278.4 MOS/KG (273-304); Potassium 3.8 MMOL/L (3.5-5.1)
[2021-02-14 07:55] LABS: Basophils % 0.3 % (0.0-0.8); Eosinophils # 0.3 10*3/uL (0.0-0.87); Eosinophils % 2.4 % (0.00-10.9); Hematocrit 36.8 VOL% (42.0-52.0); Immature Granulocytes % 0.6 %; Immature Granulocytes Absolute 0.07 #; Lymphocytes # 1.8 10*3/uL (1.4-4.0); Lymphocytes % 15.4 % (21.2-54.2); Mean Corpuscular HGB Conc 29.1 GM/DL (32-36); Mean Corpuscular Volume 84.2 FL (87-102); Mean Platelet Volume 10.1 FL (9.6-12.0); Monocytes % 8.5 % (1.7-12.7); Neutrophils % 72.8 % (38.7-73.9); Platelet Count 317 T/CUMM (130-400); Red Blood Count 4.37 MC/CUMM (3.8-5.5); Red Cell Distribution Width 18.2 % (9.3-17.3); White Blood Count 11.5 T/CUMM (4-12)
[2021-02-14 07:58] LABS: Hemoglobin 10.7 GM/DL (14.0-18.0)
[2021-02-14] MEDS: INSULIN LISPRO 100 UNIT/ML SUBCUT SCH ×4 (08:17→20:09)
[2021-02-14] MEDS: PANTOPRAZOLE 40 MG TABLET PO SCH (08:52)
[2021-02-14] MEDS: APIXABAN 5 MG TABLET PO SCH ×2 (08:52→21:07)
[2021-02-14] MEDS ORDERED: APIXABAN 5 MG TABLET PO SCH (09:00)
[2021-02-14] MEDS: SODIUM CHLORIDE 0.9% 1,000 ML IV SCH ×2 (10:48→10:49)
[2021-02-14] MEDS ORDERED: MAGNESIUM SULF RIDER 2 GM/50 ML PREMIX IV ONE (11:00)
[2021-02-14] MEDS ORDERED: SKIN HEALING OINT (AQUAPHOR) 50 GM TUBE TOP SCH (11:00)
[2021-02-14] MEDS: SODIUM HYPOCHLORITE 0.25% IRRIG 473 ML BOTTLE TOP SCH (12:00)
[2021-02-14] MEDS: TOPIRAMATE 25 MG TABLET PO SCH (12:02)
[2021-02-14] MEDS: BACILLUS COAGULANS CAPLET PO SCH ×2 (15:16→21:07)
[2021-02-14] MEDS: FERROUS SULFATE 325 MG TABLET PO SCH (17:36)
[2021-02-14] MEDS: metFORMIN 500 MG TABLET PO SCH (17:36)
[2021-02-14] MEDS: DESITIN 4OZ/NYSTATIN 15 GRAM MIXTURE PASTE TOP SCH ×2 (17:50→21:07)
[2021-02-15] MEDS: VANCOMYCIN 50 MG/ML 60 ML/BOTTLE PO SCH ×4 (03:18→22:58)
[2021-02-15] MEDS: SODIUM CHLORIDE 0.9% 1,000 ML IV SCH ×2 (03:25→16:16)
[2021-02-15 06:30] LABS: Calcium 8.1 MG/DL (8.5-10.1); Osmolality,Calculated 275.5 MOS/KG (273-304)
[2021-02-15 07:41] LABS: Basophils # 0.1 10*3/uL (0.0-0.2); Basophils % 0.5 % (0.0-0.8); Eosinophils # 0.5 10*3/uL (0.0-0.87); Hematocrit 34.2 VOL% (42.0-52.0); Hemoglobin 9.9 GM/DL (14.0-18.0); Immature Granulocytes % 0.5 %; Immature Granulocytes Absolute 0.05 #; Lymphocytes # 2.2 10*3/uL (1.4-4.0); Lymphocytes % 22.5 % (21.2-54.2); Mean Corpuscular HGB Conc 28.9 GM/DL (32-36); Mean Corpuscular Volume 85.1 FL (87-102); Mean Platelet Volume 10.5 FL (9.6-12.0); Monocytes % 8.5 % (1.7-12.7); Platelet Count 307 T/CUMM (130-400); Red Blood Count 4.02 MC/CUMM (3.8-5.5); Red Cell Distribution Width 18.4 % (9.3-17.3); White Blood Count 9.6 T/CUMM (4-12)
[2021-02-15] MEDS: INSULIN LISPRO 100 UNIT/ML SUBCUT SCH ×4 (08:05→22:11)
[2021-02-15 09:09] LABS: Hypochromia 3+; Microcytosis Slight; Platelet Estimate Normal
[2021-02-15] MEDS: metFORMIN 500 MG TABLET PO SCH ×2 (09:51→17:55)
[2021-02-15] MEDS: MELOXICAM 7.5 MG TABLET PO SCH (09:51)
[2021-02-15] MEDS: APIXABAN 5 MG TABLET PO SCH ×2 (09:52→22:58)
[2021-02-15] MEDS: TOPIRAMATE 25 MG TABLET PO SCH (09:52)
[2021-02-15] MEDS: BACILLUS COAGULANS CAPLET PO SCH ×3 (09:52→22:58)
[2021-02-15] MEDS: PANTOPRAZOLE 40 MG TABLET PO SCH (09:52)
[2021-02-15] MEDS: FERROUS SULFATE 325 MG TABLET PO SCH ×2 (09:52→17:52)
[2021-02-15] MEDS: DESITIN 4OZ/NYSTATIN 15 GRAM MIXTURE PASTE TOP SCH ×2 (09:53→22:58)
[2021-02-15] MEDS ORDERED: TUBERCULIN SKIN TEST 0.1 ML SYRINGE INTRADERM ONE (12:28)
[2021-02-15] MEDS: SODIUM HYPOCHLORITE 0.25% IRRIG 473 ML BOTTLE TOP SCH (16:49)
[2021-02-16] MEDS: VANCOMYCIN 50 MG/ML 60 ML/BOTTLE PO SCH ×4 (04:17→21:53)
[2021-02-16] MEDS: MELOXICAM 7.5 MG TABLET PO SCH (09:27)
[2021-02-16] MEDS: FERROUS SULFATE 325 MG TABLET PO SCH ×2 (09:27→17:12)
[2021-02-16] MEDS: BACILLUS COAGULANS CAPLET PO SCH ×3 (09:27→21:47)
[2021-02-16] MEDS: APIXABAN 5 MG TABLET PO SCH ×2 (09:27→21:48)
[2021-02-16] MEDS: PANTOPRAZOLE 40 MG TABLET PO SCH (09:27)
[2021-02-16] MEDS: TOPIRAMATE 25 MG TABLET PO SCH (09:27)
[2021-02-16] MEDS: DESITIN 4OZ/NYSTATIN 15 GRAM MIXTURE PASTE TOP SCH ×2 (09:28→21:48)
[2021-02-16] MEDS: SODIUM HYPOCHLORITE 0.25% IRRIG 473 ML BOTTLE TOP SCH (09:30)
[2021-02-16] MEDS: INSULIN LISPRO 100 UNIT/ML SUBCUT SCH ×4 (09:30→21:49)
[2021-02-16] MEDS: metFORMIN 500 MG TABLET PO SCH ×2 (09:30→17:12)
[2021-02-16] MEDS: SODIUM CHLORIDE 0.9% 1,000 ML IV SCH ×2 (09:45→23:03)
[2021-02-17] MEDS: VANCOMYCIN 50 MG/ML 60 ML/BOTTLE PO SCH ×4 (03:28→20:42)
[2021-02-17] MEDS: FERROUS SULFATE 325 MG TABLET PO SCH ×2 (07:38→17:27)
[2021-02-17] MEDS: metFORMIN 500 MG TABLET PO SCH ×2 (07:38→17:27)
[2021-02-17] MEDS: INSULIN LISPRO 100 UNIT/ML SUBCUT SCH ×4 (08:03→20:41)
[2021-02-17] MEDS: MELOXICAM 7.5 MG TABLET PO SCH (10:21)
[2021-02-17] MEDS: TOPIRAMATE 25 MG TABLET PO SCH (10:21)
[2021-02-17] MEDS: APIXABAN 5 MG TABLET PO SCH ×2 (10:21→20:42)
[2021-02-17] MEDS: BACILLUS COAGULANS CAPLET PO SCH ×3 (10:21→20:42)
[2021-02-17] MEDS: PANTOPRAZOLE 40 MG TABLET PO SCH (10:21)
[2021-02-17] MEDS: SODIUM HYPOCHLORITE 0.25% IRRIG 473 ML BOTTLE TOP SCH (10:22)
[2021-02-17] MEDS: DESITIN 4OZ/NYSTATIN 15 GRAM MIXTURE PASTE TOP SCH ×2 (10:22→20:42)
[2021-02-17] MEDS: SODIUM CHLORIDE 0.9% 1,000 ML IV SCH (12:36)
[2021-02-18] MEDS: SODIUM CHLORIDE 0.9% 1,000 ML IV SCH ×2 (01:29→20:58)
[2021-02-18] MEDS: VANCOMYCIN 50 MG/ML 60 ML/BOTTLE PO SCH ×4 (03:40→20:57)
[2021-02-18 06:30] LABS: Calcium 8.7 MG/DL (8.5-10.1); Osmolality,Calculated 267.1 MOS/KG (273-304); Potassium 4.7 MMOL/L (3.5-5.1)
[2021-02-18 06:50] LABS: Basophils % 0.4 % (0.0-0.8); Eosinophils # 0.4 10*3/uL (0.0-0.87); Eosinophils % 4.2 % (0.00-10.9); Hematocrit 34.9 VOL% (42.0-52.0); Immature Granulocytes % 0.5 %; Immature Granulocytes Absolute 0.05 #; Lymphocytes % 19.7 % (21.2-54.2); Mean Corpuscular HGB Conc 28.7 GM/DL (32-36); Mean Corpuscular Volume 85.7 FL (87-102); Mean Platelet Volume 10.2 FL (9.6-12.0); Monocytes % 7.9 % (1.7-12.7); Neutrophils % 67.3 % (38.7-73.9); Platelet Count 324 T/CUMM (130-400); Red Blood Count 4.07 MC/CUMM (3.8-5.5); Red Cell Distribution Width 18.5 % (9.3-17.3); White Blood Count 10.2 T/CUMM (4-12)
[2021-02-18] MEDS: INSULIN LISPRO 100 UNIT/ML SUBCUT SCH ×4 (07:40→20:56)
[2021-02-18] MEDS: MELOXICAM 7.5 MG TABLET PO SCH (09:51)
[2021-02-18] MEDS: BACILLUS COAGULANS CAPLET PO SCH ×3 (09:51→20:56)
[2021-02-18] MEDS: FERROUS SULFATE 325 MG TABLET PO SCH ×2 (09:51→16:55)
[2021-02-18] MEDS: metFORMIN 500 MG TABLET PO SCH ×2 (09:51→16:56)
[2021-02-18] MEDS: APIXABAN 5 MG TABLET PO SCH ×2 (09:52→20:56)
[2021-02-18] MEDS: TOPIRAMATE 25 MG TABLET PO SCH (09:52)
[2021-02-18] MEDS: PANTOPRAZOLE 40 MG TABLET PO SCH (09:52)
[2021-02-18] MEDS: DESITIN 4OZ/NYSTATIN 15 GRAM MIXTURE PASTE TOP SCH ×2 (10:05→20:57)
[2021-02-18] MEDS: SODIUM HYPOCHLORITE 0.25% IRRIG 473 ML BOTTLE TOP SCH (10:05)
[2021-02-18] MEDS ORDERED: MAGNESIUM SULF RIDER 4 GM/100 ML PREMIX IV PRN (13:31)
[2021-02-18] MEDS ORDERED: MAGNESIUM SULF RIDER 2 GM/50 ML PREMIX IV PRN (13:31)
[2021-02-19] MEDS: SODIUM CHLORIDE 0.9% 1,000 ML IV SCH ×2 (03:27→17:14)
[2021-02-19] MEDS: VANCOMYCIN 50 MG/ML 60 ML/BOTTLE PO SCH ×4 (03:27→22:10)
[2021-02-19] MEDS: INSULIN LISPRO 100 UNIT/ML SUBCUT SCH ×4 (08:31→22:09)
[2021-02-19 08:50] LABS: Basophils # 0.1 10*3/uL (0.0-0.2); Basophils % 0.5 % (0.0-0.8); Eosinophils # 0.5 10*3/uL (0.0-0.87); Eosinophils % 4.5 % (0.00-10.9); Hematocrit 37.2 VOL% (42.0-52.0); Hemoglobin 10.7 GM/DL (14.0-18.0); Immature Granulocytes % 0.8 %; Immature Granulocytes Absolute 0.09 #; Lymphocytes % 17.8 % (21.2-54.2); Mean Corpuscular HGB Conc 28.8 GM/DL (32-36); Mean Corpuscular Volume 85.5 FL (87-102); Mean Platelet Volume 10.5 FL (9.6-12.0); Monocytes % 6.3 % (1.7-12.7); Neutrophils % 70.1 % (38.7-73.9); Red Blood Count 4.35 MC/CUMM (3.8-5.5); Red Cell Distribution Width 18.9 % (9.3-17.3)
[2021-02-19 08:52] LABS: Platelet Count 229 T/CUMM (130-400)
[2021-02-19 08:55] LABS: Platelet Estimate Normal
[2021-02-19 08:56] LABS: Anisocytosis 1+
[2021-02-19] MEDS: MELOXICAM 7.5 MG TABLET PO SCH (10:44)
[2021-02-19] MEDS: APIXABAN 5 MG TABLET PO SCH ×2 (10:44→22:09)
[2021-02-19] MEDS: SODIUM HYPOCHLORITE 0.25% IRRIG 473 ML BOTTLE TOP SCH (10:44)
[2021-02-19] MEDS: BACILLUS COAGULANS CAPLET PO SCH ×3 (10:44→22:09)
[2021-02-19] MEDS: DESITIN 4OZ/NYSTATIN 15 GRAM MIXTURE PASTE TOP SCH ×2 (10:44→22:09)
[2021-02-19] MEDS: PANTOPRAZOLE 40 MG TABLET PO SCH (10:44)
[2021-02-19] MEDS: TOPIRAMATE 25 MG TABLET PO SCH (10:44)
[2021-02-19] MEDS: FERROUS SULFATE 325 MG TABLET PO SCH ×2 (10:44→17:15)
[2021-02-19] MEDS: metFORMIN 500 MG TABLET PO SCH ×2 (10:44→17:15)
[2021-02-20 06:12] LABS: Calcium 8.5 MG/DL (8.5-10.1); Osmolality,Calculated 265.2 MOS/KG (273-304); Potassium 5.8 MMOL/L (3.5-5.1)
[2021-02-20] MEDS: VANCOMYCIN 50 MG/ML 60 ML/BOTTLE PO SCH ×4 (07:40→21:44)
[2021-02-20] MEDS: MELOXICAM 7.5 MG TABLET PO SCH (08:43)
[2021-02-20] MEDS: FERROUS SULFATE 325 MG TABLET PO SCH ×2 (08:43→16:22)
[2021-02-20] MEDS: TOPIRAMATE 25 MG TABLET PO SCH (08:44)
[2021-02-20] MEDS: metFORMIN 500 MG TABLET PO SCH ×2 (08:44→16:22)
[2021-02-20] MEDS: PANTOPRAZOLE 40 MG TABLET PO SCH (08:44)
[2021-02-20] MEDS: APIXABAN 5 MG TABLET PO SCH ×2 (08:44→21:41)
[2021-02-20] MEDS: DESITIN 4OZ/NYSTATIN 15 GRAM MIXTURE PASTE TOP SCH ×2 (08:44→21:44)
[2021-02-20] MEDS: BACILLUS COAGULANS CAPLET PO SCH ×3 (08:44→21:42)
[2021-02-20] MEDS: SODIUM HYPOCHLORITE 0.25% IRRIG 473 ML BOTTLE TOP SCH (08:45)
[2021-02-20] MEDS: INSULIN LISPRO 100 UNIT/ML SUBCUT SCH ×4 (09:07→21:00)
[2021-02-20] MEDS ORDERED: SKIN HEALING OINT (AQUAPHOR) 50 GM TUBE TOP PRN (09:30)
[2021-02-20] MEDS ORDERED: SODIUM POLYSTYRENE SULFATE 15 GM/60 ML BOTTLE PO STA (15:36)
[2021-02-20] MEDS: FUROSEMIDE 40 MG/4 ML VIAL IV SCH (16:23)
[2021-02-21] MEDS: VANCOMYCIN 50 MG/ML 60 ML/BOTTLE PO SCH ×4 (02:04→22:15)
[2021-02-21 05:40] LABS: Basophils # 0.1 10*3/uL (0.0-0.2); Basophils % 0.4 % (0.0-0.8); Eosinophils # 0.4 10*3/uL (0.0-0.87); Hemoglobin 10.1 GM/DL (14.0-18.0); Immature Granulocytes % 0.4 %; Immature Granulocytes Absolute 0.05 #; Lymphocytes # 2.3 10*3/uL (1.4-4.0); Lymphocytes % 19.3 % (21.2-54.2); Mean Corpuscular HGB Conc 28.9 GM/DL (32-36); Mean Corpuscular Volume 85.4 FL (87-102); Neutrophils % 70.9 % (38.7-73.9); Platelet Count 320 T/CUMM (130-400); Red Cell Distribution Width 19.1 % (9.3-17.3); White Blood Count 11.8 T/CUMM (4-12)
[2021-02-21 05:45] LABS: Calcium 8.8 MG/DL (8.5-10.1); Potassium 4.4 MMOL/L (3.5-5.1)
[2021-02-21] MEDS: SODIUM CHLORIDE 0.9% 1,000 ML IV SCH (06:23)
[2021-02-21] MEDS: FERROUS SULFATE 325 MG TABLET PO SCH ×2 (08:25→17:03)
[2021-02-21] MEDS: metFORMIN 500 MG TABLET PO SCH ×2 (08:25→17:03)
[2021-02-21] MEDS: INSULIN LISPRO 100 UNIT/ML SUBCUT SCH ×4 (08:26→22:15)
[2021-02-21] MEDS: SODIUM HYPOCHLORITE 0.25% IRRIG 473 ML BOTTLE TOP SCH (10:27)
[2021-02-21] MEDS: FUROSEMIDE 40 MG/4 ML VIAL IV SCH (10:30)
[2021-02-21] MEDS: MELOXICAM 7.5 MG TABLET PO SCH (10:31)
[2021-02-21] MEDS: TOPIRAMATE 25 MG TABLET PO SCH (10:31)
[2021-02-21] MEDS: PANTOPRAZOLE 40 MG TABLET PO SCH (10:31)
[2021-02-21] MEDS: APIXABAN 5 MG TABLET PO SCH ×2 (10:31→22:14)
[2021-02-21] MEDS: BACILLUS COAGULANS CAPLET PO SCH ×3 (10:31→22:14)
[2021-02-21] MEDS: DESITIN 4OZ/NYSTATIN 15 GRAM MIXTURE PASTE TOP SCH ×2 (12:27→22:15)
[2021-02-21] MEDS: MAGNESIUM OXIDE 400 MG TABLET PO SCH (22:15)
[2021-02-22 05:54] LABS: Calcium 8.4 MG/DL (8.5-10.1); Potassium 4.6 MMOL/L (3.5-5.1)
[2021-02-22 06:10] LABS: Basophils % 0.4 % (0.0-0.8); Eosinophils # 0.3 10*3/uL (0.0-0.87); Eosinophils % 2.8 % (0.00-10.9); Hematocrit 37.1 VOL% (42.0-52.0); Immature Granulocytes % 0.5 %; Immature Granulocytes Absolute 0.05 #; Lymphocytes # 1.9 10*3/uL (1.4-4.0); Mean Corpuscular HGB Conc 29.6 GM/DL (32-36); Mean Corpuscular Volume 84.1 FL (87-102); Mean Platelet Volume 9.6 FL (9.6-12.0); Monocytes % 6.6 % (1.7-12.7); Neutrophils % 71.7 % (38.7-73.9); Platelet Count 301 T/CUMM (130-400); Red Blood Count 4.41 MC/CUMM (3.8-5.5); Red Cell Distribution Width 18.9 % (9.3-17.3); White Blood Count 10.5 T/CUMM (4-12)
[2021-02-22] MEDS: FUROSEMIDE 40 MG/4 ML VIAL IV SCH (08:03)
[2021-02-22] MEDS: APIXABAN 5 MG TABLET PO SCH (08:04)
[2021-02-22] MEDS: MAGNESIUM OXIDE 400 MG TABLET PO SCH (08:05)
[2021-02-22] MEDS: metFORMIN 500 MG TABLET PO SCH (08:05)
[2021-02-22] MEDS: MELOXICAM 7.5 MG TABLET PO SCH (08:05)
[2021-02-22] MEDS: BACILLUS COAGULANS CAPLET PO SCH (08:05)
[2021-02-22] MEDS: TOPIRAMATE 25 MG TABLET PO SCH (08:06)
[2021-02-22] MEDS: PANTOPRAZOLE 40 MG TABLET PO SCH (09:10)
[2021-02-22] MEDS: FERROUS SULFATE 325 MG TABLET PO SCH (09:13)
[2021-02-22] MEDS: INSULIN LISPRO 100 UNIT/ML SUBCUT SCH ×2 (09:14→12:58)
[2021-02-22 13:03] VITALS: BP 129/94
[2021-02-22] MEDS: SODIUM HYPOCHLORITE 0.25% IRRIG 473 ML BOTTLE TOP SCH (13:29)
[2021-02-22] MEDS: DESITIN 4OZ/NYSTATIN 15 GRAM MIXTURE PASTE TOP SCH (13:32)
== END 2021-02-22 15:24 | disposition home or self-care (01) | DRG 248 ==
LOC: N.EDINP 13:16 → N.ED 13:16 → SUATTDRO 02-13 08:37 → N.EDINP 02-13 11:36 → N.5E 02-13 11:51
PROVIDERS: ADMIT Internal Medicine; ATTEND Emergency Medicine

== ENCOUNTER 2021-04-21 16:57 | Inpatient (IN) ==
[2021-04-21 18:06] LABS: Basophils % 0.3 % (0.0-0.8); Eosinophils % 0.2 % (0.00-10.9); Hematocrit 36.1 VOL% (42.0-52.0); Hemoglobin 10.9 GM/DL (14.0-18.0); Immature Granulocytes % 0.6 %; Immature Granulocytes Absolute 0.08 #; Lymphocytes # 1.9 10*3/uL (1.4-4.0); Lymphocytes % 14.5 % (21.2-54.2); Mean Corpuscular HGB Conc 30.2 GM/DL (32-36); Mean Corpuscular Volume 85.1 FL (87-102); Mean Platelet Volume 10.1 FL (9.6-12.0); Monocytes % 8.6 % (1.7-12.7); Neutrophils % 75.8 % (38.7-73.9); Platelet Count 352 T/CUMM (130-400); Red Blood Count 4.24 MC/CUMM (3.8-5.5); Red Cell Distribution Width 18.4 % (9.3-17.3)
[2021-04-21] MEDS ORDERED: ONDANSETRON 4 MG/2 ML VIAL IV STA (18:42)
[2021-04-21] MEDS ORDERED: MECLIZINE 25 MG TABLET PO STA (18:43)
[2021-04-21 18:54] LABS: Alanine Aminotransferase 14 U/L (16-61); Albumin 1.9 G/DL (3.4-5.0); Alkaline Phosphatase 78 U/L (45-117); Aspartate Amino Transferase 11 U/L (0-37); Bilirubin,Total < 0.39 MG/DL (0.20-1.00); Blood Urea Nitrogen 55 MG/DL (7-18); Calcium 7.4 MG/DL (8.5-10.1); Carbon Dioxide 20 MMOL/L (21-32); Estimated Glom Filtration Rate 14 ML/MIN; Glucose 69 MG/DL (74-106); Osmolality,Calculated 285.8 MOS/KG (273-304); Potassium 3.4 MMOL/L (3.5-5.1); Sodium 137 MMOL/L (136-145); Total Protein 6.9 G/DL (6.4-8.2)
[2021-04-21] MEDS ORDERED: POTASSIUM CHLORIDE 20 MEQ TABLET PO STA (19:19)
[2021-04-21] MEDS ORDERED: MAGNESIUM SULF RIDER 2 GM/50 ML PREMIX IV STA (19:19)
[2021-04-21] MEDS ORDERED: SODIUM CHLORIDE 0.9% 1,000 ML IV STA (19:19)
[2021-04-21] MEDS ORDERED: GLUCAGON 1 MG VIAL IM PRN (20:31)
[2021-04-21] MEDS ORDERED: ONDANSETRON 4 MG/2 ML VIAL IV PRN (20:31)
[2021-04-21] MEDS ORDERED: hydrALAZINE 20 MG/1 ML VIAL IV PRN (20:31)
[2021-04-21] MEDS ORDERED: MORPHINE 4 MG/1 ML VIAL IV PRN (20:45)
[2021-04-21] MEDS ORDERED: DEXTROSE 10% 250 ML BAG IV PRN (20:45)
[2021-04-21] MEDS: INSULIN REGULAR 100 UNIT/ML SUBCUT SCH (23:36)
[2021-04-22] MEDS: HEPARIN 5,000 UNIT/1 ML VIAL SUBCUT SCH ×3 (00:56→22:00)
[2021-04-22] MEDS: INSULIN REGULAR 100 UNIT/ML SUBCUT SCH ×4 (10:11→23:00)
[2021-04-22 10:20] LABS: Basophils % 0.2 % (0.0-0.8); Eosinophils # 0.1 10*3/uL (0.0-0.87); Eosinophils % 0.3 % (0.00-10.9); Hematocrit 37.5 VOL% (42.0-52.0); Hemoglobin 11.6 GM/DL (14.0-18.0); Immature Granulocytes % 0.8 %; Immature Granulocytes Absolute 0.13 #; Lymphocytes # 2.1 10*3/uL (1.4-4.0); Lymphocytes % 12.8 % (21.2-54.2); Mean Corpuscular HGB Conc 30.9 GM/DL (32-36); Mean Corpuscular Volume 83.7 FL (87-102); Mean Platelet Volume 10.1 FL (9.6-12.0); Monocytes % 8.1 % (1.7-12.7); Neutrophils % 77.8 % (38.7-73.9); Platelet Count 380 T/CUMM (130-400); Red Blood Count 4.48 MC/CUMM (3.8-5.5); Red Cell Distribution Width 18.3 % (9.3-17.3); White Blood Count 16.7 T/CUMM (4-12)
[2021-04-22] MEDS: PANTOPRAZOLE 40 MG VIAL IV SCH (10:27)
[2021-04-22 10:38] LABS: Hypochromia 1+; Microcytosis 1+
[2021-04-22 10:48] LABS: Alanine Aminotransferase 17 U/L (16-61); Alkaline Phosphatase 84 U/L (45-117); Aspartate Amino Transferase 16 U/L (0-37); Bilirubin,Total < 0.39 MG/DL (0.20-1.00); Blood Urea Nitrogen 58 MG/DL (7-18); Calcium 7.5 MG/DL (8.5-10.1); Carbon Dioxide 18 MMOL/L (21-32); Estimated Glom Filtration Rate 14 ML/MIN; Glucose 114 MG/DL (74-106); HDL Cholesterol 38 MG/DL (40-60); Osmolality,Calculated 284.2 MOS/KG (273-304); Potassium 3.8 MMOL/L (3.5-5.1); Risk Ratio 1.87; Sodium 134 MMOL/L (136-145); Total Protein 7.4 G/DL (6.4-8.2); Triglycerides 78 MG/DL (2-150); VLDL Cholesterol 15.6 MG/DL
[2021-04-22] MEDS ORDERED: VANCOMYCIN 50 MG/ML 60 ML/BOTTLE PO SCH (12:00)
[2021-04-22] MEDS: FIDAXOMICIN 200 MG TABLET PO SCH ×2 (13:00→22:03)
[2021-04-22] MEDS: DEXTROSE 5% NACL 0.9% 1,000 ML IV SCH ×3 (13:31→21:59)
[2021-04-22] MEDS ORDERED: CHOLESTYRAMINE 4 GM PACK PO SCH (22:00)
[2021-04-22] MEDS ORDERED: MAGNESIUM SULF RIDER 2 GM/50 ML PREMIX IV STA (22:40)
[2021-04-23] MEDS: DEXTROSE 5% NACL 0.9% 1,000 ML IV SCH ×3 (05:46→21:48)
[2021-04-23 06:40] LABS: Bacteria,Urine Occasional /HPF (Few); Bilirubin,Urine Negative (Negative); Blood, Urine Moderate mg/dL (Negative); Glucose,Urine (UA) Negative (Negative); Hyaline Casts,Urine 1 /LPF (0-3); Ketones,Urine Negative (Negative); Mucus,Urine Occasional /LPF (Occasional); Nitrite,Urine Negative (Negative); Protein,Urine 30 MG/DL; RBC,Urine 2 /HPF (0-4); Squamous Epithelial Cell,Urine Occasional /HPF (0-10); Urine Appearance Clear (Clear); Urine Color Yellow (Yellow); Urine Urobilinogen 0.2 EU/DL (<2.0); Urine pH 5.5 (4.5-8.0)
[2021-04-23] MEDS ORDERED: ALBUTEROL 2.5 MG/3 ML NEB RESP TX PRN (08:04)
[2021-04-23 08:43] LABS: Calcium 7.8 MG/DL (8.5-10.1); Osmolality,Calculated 285.1 MOS/KG (273-304); Potassium 3.5 MMOL/L (3.5-5.1)
[2021-04-23] MEDS: INSULIN REGULAR 100 UNIT/ML SUBCUT SCH ×4 (10:26→22:30)
[2021-04-23] MEDS: ATORVASTATIN 40 MG TABLET PO SCH (10:30)
[2021-04-23] MEDS: FIDAXOMICIN 200 MG TABLET PO SCH ×2 (10:31→21:48)
[2021-04-23] MEDS: FERROUS SULFATE 325 MG TABLET PO SCH ×2 (10:31→18:19)
[2021-04-23] MEDS: TOPIRAMATE 25 MG TABLET PO SCH (10:31)
[2021-04-23] MEDS: HEPARIN 5,000 UNIT/1 ML VIAL SUBCUT SCH ×2 (10:33→21:48)
[2021-04-23] MEDS: PANTOPRAZOLE 40 MG VIAL IV SCH (10:37)
[2021-04-24] MEDS: DEXTROSE 5% NACL 0.9% 1,000 ML IV SCH ×3 (05:31→22:38)
[2021-04-24 05:56] LABS: Calcium 7.4 MG/DL (8.5-10.1); Osmolality,Calculated 291.5 MOS/KG (273-304); Potassium 3.3 MMOL/L (3.5-5.1)
[2021-04-24] MEDS ORDERED: PANTOPRAZOLE 40 MG TABLET PO SCH (09:00)
[2021-04-24] MEDS: ATORVASTATIN 40 MG TABLET PO SCH (09:54)
[2021-04-24] MEDS: FIDAXOMICIN 200 MG TABLET PO SCH ×2 (09:55→22:37)
[2021-04-24] MEDS: FERROUS SULFATE 325 MG TABLET PO SCH ×2 (09:55→17:40)
[2021-04-24] MEDS: TOPIRAMATE 25 MG TABLET PO SCH (09:55)
[2021-04-24] MEDS: HEPARIN 5,000 UNIT/1 ML VIAL SUBCUT SCH ×2 (09:56→22:37)
[2021-04-24] MEDS: INSULIN REGULAR 100 UNIT/ML SUBCUT SCH ×4 (09:56→22:47)
[2021-04-25 05:30] LABS: Basophils % 0.4 % (0.0-0.8); Eosinophils # 0.1 10*3/uL (0.0-0.87); Eosinophils % 0.8 % (0.00-10.9); Hemoglobin 9.9 GM/DL (14.0-18.0); Immature Granulocytes % 0.7 %; Immature Granulocytes Absolute 0.08 #; Lymphocytes # 3.2 10*3/uL (1.4-4.0); Lymphocytes % 28.5 % (21.2-54.2); Mean Corpuscular HGB Conc 30.9 GM/DL (32-36); Mean Corpuscular Volume 82.5 FL (87-102); Mean Platelet Volume 10.2 FL (9.6-12.0); Monocytes % 10.1 % (1.7-12.7); Neutrophils % 59.5 % (38.7-73.9); Platelet Count 320 T/CUMM (130-400); Red Blood Count 3.88 MC/CUMM (3.8-5.5); Red Cell Distribution Width 18.4 % (9.3-17.3)
[2021-04-25] MEDS: DEXTROSE 5% NACL 0.9% 1,000 ML IV SCH ×2 (05:52→17:00)
[2021-04-25 05:56] LABS: Calcium 7.2 MG/DL (8.5-10.1); Osmolality,Calculated 294.1 MOS/KG (273-304); Potassium 2.8 MMOL/L (3.5-5.1)
[2021-04-25] MEDS: INSULIN REGULAR 100 UNIT/ML SUBCUT SCH ×4 (08:58→21:33)
[2021-04-25] MEDS: POTASSIUM CHLORIDE 20 MEQ TABLET PO SCH ×3 (10:58→21:33)
[2021-04-25] MEDS: ATORVASTATIN 40 MG TABLET PO SCH (10:58)
[2021-04-25] MEDS: FIDAXOMICIN 200 MG TABLET PO SCH ×2 (10:58→21:32)
[2021-04-25] MEDS: FERROUS SULFATE 325 MG TABLET PO SCH ×2 (10:58→17:32)
[2021-04-25] MEDS: HEPARIN 5,000 UNIT/1 ML VIAL SUBCUT SCH ×2 (10:58→21:33)
[2021-04-25] MEDS: TOPIRAMATE 25 MG TABLET PO SCH (11:10)
[2021-04-26] MEDS: DEXTROSE 5% NACL 0.9% 1,000 ML IV SCH ×3 (00:31→15:57)
[2021-04-26 05:15] LABS: Calcium 8.1 MG/DL (8.5-10.1); Osmolality,Calculated 291.1 MOS/KG (273-304); Potassium 3.7 MMOL/L (3.5-5.1)
[2021-04-26] MEDS: FIDAXOMICIN 200 MG TABLET PO SCH (09:11)
[2021-04-26] MEDS: ATORVASTATIN 40 MG TABLET PO SCH (09:11)
[2021-04-26] MEDS: FERROUS SULFATE 325 MG TABLET PO SCH (09:11)
[2021-04-26] MEDS: HEPARIN 5,000 UNIT/1 ML VIAL SUBCUT SCH (09:12)
[2021-04-26] MEDS: INSULIN REGULAR 100 UNIT/ML SUBCUT SCH ×2 (09:29→12:51)
[2021-04-26 15:08] VITALS: BP 113/51
== END 2021-04-26 14:54 | disposition home or self-care (01) | DRG 248 ==
LOC: N.ED 16:57 → N.EDINP 20:30 → N.5E 04-22 19:17
PROVIDERS: ADMIT Internal Medicine Geriatric Medicine; ATTEND Internal Medicine Geriatric Medicine

== ENCOUNTER 2022-04-14 16:05 | Inpatient (IN) ==
[2022-04-14 20:08] LABS: Basophils # 0.1 10*3/uL (0.0-0.2); Basophils % 0.3 % (0.0-0.8); Eosinophils # 0.5 10*3/uL (0.0-0.87); Eosinophils % 3.6 % (0.00-10.9); Hematocrit 36.3 VOL% (42.0-52.0); Hemoglobin 10.7 GM/DL (14.0-18.0); Immature Granulocytes % 0.6 %; Immature Granulocytes Absolute 0.09 #; Lymphocytes # 1.7 10*3/uL (1.4-4.0); Lymphocytes % 11.1 % (21.2-54.2); Mean Corpuscular HGB Conc 29.5 GM/DL (32-36); Mean Corpuscular Volume 86.6 FL (87-102); Mean Platelet Volume 9.9 FL (9.6-12.0); Monocytes # 1.5 10*3/uL (0.11-0.8); Monocytes % 10.3 % (1.7-12.7); Neutrophils % 74.1 % (38.7-73.9); Platelet Count 464 T/CUMM (130-400); Red Blood Count 4.19 MC/CUMM (3.8-5.5); White Blood Count 14.95 T/CUMM (4-12)
[2022-04-14 20:12] LABS: Alanine Aminotransferase 16 U/L (16-61); Albumin 2.5 G/DL (3.4-5.0); Alkaline Phosphatase 109 U/L (45-117); Aspartate Amino Transferase 24 U/L (0-37); Bilirubin,Total < 0.39 MG/DL (0.20-1.00); Blood Urea Nitrogen 78 MG/DL (7-18); Calcium 8.3 MG/DL (8.5-10.1); Carbon Dioxide 21 MMOL/L (21-32); Chloride 108 MMOL/L (98-107); Glucose 87 MG/DL (74-106); Osmolality,Calculated 289.2 MOS/KG (273-304); Sodium 134 MMOL/L (136-145); Total Protein 9.7 G/DL (6.4-8.2)
[2022-04-14 20:14] LABS: Potassium 6.7 MMOL/L (3.5-5.1)
[2022-04-14] MEDS ORDERED: SODIUM POLYSTYRENE SULFATE 15 GM/60 ML BOTTLE PO STA (20:15)
[2022-04-14] MEDS ORDERED: INSULIN REGULAR 10 UNIT, CALCIUM GLUCONATE 1,000 MG in DEXTROSE 10% 250 ML IV ONE (20:15)
[2022-04-14] MEDS ORDERED: SODIUM CHLORIDE 0.9% 1,000 ML IV STA (20:23)
[2022-04-14] MEDS ORDERED: PIPERACILLIN/TAZOBACTAM 3,375 MG in SODIUM CHLORIDE 0.9% 100 ML IV STA (20:24)
[2022-04-14] MEDS ORDERED: ONDANSETRON 4 MG/2 ML VIAL IV PRN (20:35)
[2022-04-14] MEDS ORDERED: GLUCAGON 1 MG VIAL IM PRN (20:35)
[2022-04-14] MEDS ORDERED: DEXTROSE 10% 250 ML BAG IV PRN (20:49)
[2022-04-14] MEDS: ENOXAPARIN 40 MG/0.4 ML SYRINGE SUBCUT SCH (21:24)
[2022-04-14] MEDS: ACETAMINOPHEN 325 MG TABLET PO PRN (21:36)
[2022-04-14] MEDS: INSULIN REGULAR 100 UNIT/ML SUBCUT SCH (21:37)
[2022-04-14] MEDS: DOCUSATE SODIUM 100 MG CAPSULE PO SCH (21:57)
[2022-04-14] MEDS ORDERED: MORPHINE 2 MG/1 ML SYRINGE IV STA (22:06)
[2022-04-14] MEDS ORDERED: MORPHINE 2 MG/1 ML SYRINGE IV PRN (22:06)
[2022-04-14] MEDS ORDERED: VANCOMYCIN IV ONE (22:22)
[2022-04-14] MEDS ORDERED: SODIUM CHLORIDE 0.9% IV ONE (22:22)
[2022-04-14] MEDS ORDERED: VANCOMYCIN INJ 2,000 MG in SODIUM CHLORIDE 0.9% 500 ML IV STA (22:45)
[2022-04-14] MEDS ORDERED: VANCOMYCIN INJ 2,000 MG in SODIUM CHLORIDE 0.9% 500 ML IV ONE (23:30)
[2022-04-14] MEDS: SODIUM CHLORIDE 0.9% 1,000 ML IV SCH (23:34)
[2022-04-15 02:02] LABS: Basophils # 0.1 10*3/uL (0.0-0.2); Basophils % 0.4 % (0.0-0.8); Eosinophils # 0.5 10*3/uL (0.0-0.87); Eosinophils % 2.4 % (0.00-10.9); Hemoglobin 10.3 GM/DL (14.0-18.0); Immature Granulocytes % 0.6 %; Immature Granulocytes Absolute 0.12 #; Lymphocytes # 1.5 10*3/uL (1.4-4.0); Lymphocytes % 7.8 % (21.2-54.2); Mean Corpuscular HGB Conc 28.2 GM/DL (32-36); Mean Corpuscular Volume 93.1 FL (87-102); Monocytes # 1.5 10*3/uL (0.11-0.8); Neutrophils % 80.8 % (38.7-73.9); Platelet Count 304 T/CUMM (130-400); Red Blood Count 3.92 MC/CUMM (3.8-5.5); Red Cell Distribution Width 15.9 % (9.3-17.3); White Blood Count 18.82 T/CUMM (4-12)
[2022-04-15 02:08] LABS: Hematocrit 36.5 VOL% (42.0-52.0)
[2022-04-15] MEDS ORDERED: SODIUM POLYSTYRENE SULFATE 15 GM/60 ML BOTTLE PO STA (02:29)
[2022-04-15 02:36] LABS: Calcium 8.2 MG/DL (8.5-10.1); Osmolality,Calculated 291.2 MOS/KG (273-304); Thyroid Stimulating Hormone 1.61 uIU/ml (0.358-3.74)
[2022-04-15 02:38] LABS: Potassium 6.3 MMOL/L (3.5-5.1)
[2022-04-15 02:43] LABS: % Iron Saturation 10.3 % (18-50); Ferritin 180.5 ng/mL (26-388)
[2022-04-15 02:44] LABS: Folate 9.18 NG/ML (5.38-24.0); Vitamin B12 373 PG/ML (211-911)
[2022-04-15 03:09] LABS: Sedimentation Rate-Westergren 97 MM/HR (0-15)
[2022-04-15] MEDS: PIPERACILLIN/TAZOBACTAM 3,375 MG in SODIUM CHLORIDE 0.9% 100 ML IV SCH ×3 (05:07→21:04)
[2022-04-15] MEDS: INSULIN REGULAR 100 UNIT/ML SUBCUT SCH ×4 (08:32→21:27)
[2022-04-15] MEDS: DOCUSATE SODIUM 100 MG CAPSULE PO SCH ×2 (09:20→21:05)
[2022-04-15] MEDS: PANTOPRAZOLE 40 MG TABLET PO SCH (09:20)
[2022-04-15] MEDS ORDERED: SODIUM POLYSTYRENE SULFATE 15 GM/60 ML BOTTLE PO ONE (09:23)
[2022-04-15 09:28] LABS: Hemoglobin A1 (Alkaline) 98.2 % (96.5-98.5); Hemoglobin A2 (Alkaline) 1.8 % (1.5-3.5)
[2022-04-15] MEDS: ACETAMINOPHEN 325 MG TABLET PO PRN (11:25)
[2022-04-15] MEDS: SODIUM ZIRCONIUM CYCLOSILICATE 10 GM PACK PO SCH ×2 (16:37→21:05)
[2022-04-15] MEDS: DESITIN 4OZ/NYSTATIN 15 GRAM MIXTURE PASTE TOP SCH (21:05)
[2022-04-15] MEDS: FLUDROCORTISONE 0.1 MG TABLET PO SCH (21:05)
[2022-04-15] MEDS: SODIUM CHLORIDE 0.9% 1,000 ML IV SCH (21:05)
[2022-04-15] MEDS: ENOXAPARIN 40 MG/0.4 ML SYRINGE SUBCUT SCH (21:05)
[2022-04-16] MEDS: PIPERACILLIN/TAZOBACTAM 3,375 MG in SODIUM CHLORIDE 0.9% 100 ML IV SCH ×3 (05:20→21:38)
[2022-04-16] MEDS: INSULIN REGULAR 100 UNIT/ML SUBCUT SCH ×4 (07:22→22:01)
[2022-04-16 09:32] LABS: Basophils # 0.1 10*3/uL (0.0-0.2); Basophils % 0.5 % (0.0-0.8); Eosinophils # 0.6 10*3/uL (0.0-0.87); Eosinophils % 5.3 % (0.00-10.9); Hematocrit 30.9 VOL% (42.0-52.0); Hemoglobin 9.3 GM/DL (14.0-18.0); Immature Granulocytes % 0.4 %; Immature Granulocytes Absolute 0.05 #; Lymphocytes # 1.8 10*3/uL (1.4-4.0); Lymphocytes % 15.7 % (21.2-54.2); Mean Corpuscular HGB Conc 30.1 GM/DL (32-36); Mean Corpuscular Volume 85.6 FL (87-102); Mean Platelet Volume 9.9 FL (9.6-12.0); Monocytes # 0.8 10*3/uL (0.11-0.8); Neutrophils % 71.1 % (38.7-73.9); Platelet Count 381 T/CUMM (130-400); Red Blood Count 3.61 MC/CUMM (3.8-5.5); White Blood Count 11.35 T/CUMM (4-12)
[2022-04-16 09:56] LABS: Calcium 7.8 MG/DL (8.5-10.1); Osmolality,Calculated 299.7 MOS/KG (273-304); Potassium 5.2 MMOL/L (3.5-5.1)
[2022-04-16] MEDS: DOCUSATE SODIUM 100 MG CAPSULE PO SCH ×2 (09:57→21:03)
[2022-04-16] MEDS: FERRIC GLUCONATE COMPLEX 125 MG in SODIUM CHLORIDE 0.9% 100 ML IV SCH (09:57)
[2022-04-16] MEDS: PANTOPRAZOLE 40 MG TABLET PO SCH (09:57)
[2022-04-16] MEDS: FLUDROCORTISONE 0.1 MG TABLET PO SCH ×2 (09:57→21:03)
[2022-04-16] MEDS: SODIUM CHLORIDE 0.9% 1,000 ML IV SCH ×2 (10:10→21:04)
[2022-04-16] MEDS: DESITIN 4OZ/NYSTATIN 15 GRAM MIXTURE PASTE TOP SCH ×2 (10:11→21:04)
[2022-04-16] MEDS: SODIUM ZIRCONIUM CYCLOSILICATE 10 GM PACK PO SCH ×4 (10:18→21:03)
[2022-04-16] MEDS: ENOXAPARIN 40 MG/0.4 ML SYRINGE SUBCUT SCH (21:03)
[2022-04-17 04:52] LABS: Basophils # 0.1 10*3/uL (0.0-0.2); Basophils % 0.5 % (0.0-0.8); Eosinophils # 0.8 10*3/uL (0.0-0.87); Eosinophils % 6.9 % (0.00-10.9); Hematocrit 30.2 VOL% (42.0-52.0); Immature Granulocytes % 0.4 %; Immature Granulocytes Absolute 0.05 #; Lymphocytes # 2.2 10*3/uL (1.4-4.0); Lymphocytes % 19.1 % (21.2-54.2); Mean Corpuscular HGB Conc 29.8 GM/DL (32-36); Mean Platelet Volume 9.2 FL (9.6-12.0); Monocytes # 1.2 10*3/uL (0.11-0.8); Monocytes % 10.5 % (1.7-12.7); Neutrophils % 62.6 % (38.7-73.9); Platelet Count 367 T/CUMM (130-400); Red Blood Count 3.51 MC/CUMM (3.8-5.5); White Blood Count 11.26 T/CUMM (4-12)
[2022-04-17 05:18] LABS: Calcium 8.3 MG/DL (8.5-10.1); Osmolality,Calculated 288.7 MOS/KG (273-304); Potassium 4.6 MMOL/L (3.5-5.1)
[2022-04-17] MEDS: PIPERACILLIN/TAZOBACTAM 3,375 MG in SODIUM CHLORIDE 0.9% 100 ML IV SCH ×2 (05:55→14:19)
[2022-04-17] MEDS: INSULIN REGULAR 100 UNIT/ML SUBCUT SCH ×2 (08:05→14:19)
[2022-04-17] MEDS ORDERED: CHOLECALCIFEROL 5,000 UNIT TABLET PO SCH (09:30)
[2022-04-17] MEDS: PANTOPRAZOLE 40 MG TABLET PO SCH (09:42)
[2022-04-17] MEDS: DESITIN 4OZ/NYSTATIN 15 GRAM MIXTURE PASTE TOP SCH (09:42)
[2022-04-17] MEDS: FLUDROCORTISONE 0.1 MG TABLET PO SCH (09:42)
[2022-04-17] MEDS: DOCUSATE SODIUM 100 MG CAPSULE PO SCH (09:45)
[2022-04-17] MEDS: FERRIC GLUCONATE COMPLEX 125 MG in SODIUM CHLORIDE 0.9% 100 ML IV SCH (12:50)
[2022-04-17] MEDS: SODIUM ZIRCONIUM CYCLOSILICATE 10 GM PACK PO SCH (13:59)
[2022-04-17] MEDS: SODIUM CHLORIDE 0.9% 1,000 ML IV SCH (14:18)
[2022-04-17 17:35] VITALS: BP 117/56
== END 2022-04-17 16:22 | disposition home health service (06) | DRG 380 ==
LOC: N.ED 16:05 → N.TELES 20:35
PROVIDERS: ADMIT Internal Medicine; ATTEND Internal Medicine